=== PATIENT | male | born 1985 | race American Indian/Alaskan Native ===

== ENCOUNTER 2019-11-22 08:42 | Observation (INO) | payer OTHER ==
--- NOTE | 2019-11-22 09:36 | Emergency Department Report ---
ED General Adult HPI - General Chief complaint: High BP Stated complaint: HBP/BODY PAIN/BLOOD IN URINE Time Seen by Provider: 11/22/19 09:16 Source: patient Mode of arrival: Ambulatory Limitations: No Limitations - History of Present Illness Initial comments: Pt is a 34 yo AA male who comes to the ER today with a 2 week history of blood in his urine. No discharge. No back pain. No abd pain. No n/v. No fever or chills. He also reports that he has htn but has been off his meds for a couple months due to a move from [place] and loss of insurance. He reports he now has insurance and wants his meds and pcp. He denies cp, sob or swelling/edema of legs. He does endorse intermittent occipital headaches. No n/v/d/photophobia/trauma. He is hypertensive on admit; neuro intact. Pt does have a significant PMH- HTN, HPLD, CKD; he has been off meds for "a co uple months." 04/28 VQ scan intermediate for PE 04/28 ARF- US without hydro. 06/28 nuclear lung scan normal 06/28 echo EF 10-15 08/01 nuclear stress test no ischemia with EF 50; dilated LV Pt denies drug use. Occ etoh. denes cig smoking. pos fam hx of htn. -: month(s) Associated Symptoms: denies other symptoms Treatments Prior to Arrival: none - Related Data Allergies Allergy/AdvReac Type Severity Reaction Status Date / Time dog dander Allergy Unknown Verified 05/08/16 13:08 ED Review of Systems ROS: Stated complaint: HBP/BODY PAIN/BLOOD IN URINE Other details as noted in HPI Comment: All other systems reviewed and negative ED Past Medical Hx - Past Medical History Hx Hypertension: Yes Hx CVA: No Hx Congestive Heart Failure: Yes (nicmo) Hx Diabetes: No Hx Deep Vein Thrombosis: No Hx Pulmonary Embolism: Yes Hx GERD: No Hx Liver Disease: No Hx Renal Disease: Yes Hx of Cancer: No Hx Sickle Cell Disease: No Hx Arthritis: No Hx Headaches / Migraines: No Hx Seizures: No Hx Kidney Stones: No Hx Psychiatric Treatment: No Hx Asthma: Yes Hx COPD: No Hx Tuberculosis: No Hx Dementia: No Hx HIV: No Additional medical history: pneumonia and PE in 04/2016 - Surgical History Past Surgical History?: No - Family History Family history: other (mom and dad a/w htn) - Social History Smoking Status: Never Smoker Substance Use Type: Alcohol, Marijuana (in past) ED Physical Exam - General Limitations: No Limitations General appearance: alert, in no apparent distress - Head Head exam: Present: atraumatic, normocephalic - Eye Eye exam: Present: normal appearance - ENT ENT exam: Present: mucous membranes moist - Neck Neck exam: Present: normal inspection - Respiratory Respiratory exam: Present: normal lung sounds bilaterally. Absent: respiratory distress - Cardiovascular Cardiovascular Exam: Present: regular rate, normal rhythm. Absent: systolic murmur, diastolic murmur, rubs, gallop - GI/Abdominal GI/Abdominal exam: Present: soft, normal bowel sounds - Rectal Rectal exam: Present: deferred - Extremities Exam Extremities exam: Present: normal inspection - Back Exam Back exam: Present: normal inspection - Neurological Exam Neurological exam: Present: alert, oriented X3 - Psychiatric Psychiatric exam: Present: normal affect, normal mood - Skin Skin exam: Present: warm, dry, intact, normal color. Absent: rash ED Course Vital Signs 11/22/19 11/22/19 11/22/19 08:57 10:14 10:56 Temperature 98.3 F Pulse Rate 99 H 98 H Respiratory 18 16 Rate Blood Pressure 262/168 237/173 Blood Pressure 168/114 [Left] O2 Sat by Pulse 99 Oximetry 11/22/19 11/22/19 11/22/19 12:02 13:59 14:21 Temperature Pulse Rate 85 94 H 80 Respiratory 16 16 16 Rate Blood Pressure Blood Pressure 174/125 246/192 222/162 [Left] O2 Sat by Pulse 97 96 96 Oximetry 11/22/19 14:44 Temperature Pulse Rate 116 H Respiratory 16 Rate Blood Pressure Blood Pressure 174/120 [Left] O2 Sat by Pulse 100 Oximetry - Reevaluation(s) Reevaluation #1: 11/22/19 10:31 reexam bp p hydral 20 mg IV has inc discussed with Dr Petty-will place on cardene drip will need admit for a/c KD/HTN emergency Reevaluation #2: 11/22/19 11:00 RN called me to room. Pt had delayed response to hydral- bp trending down Will hold off on cardene at this time Reevaluation #3: 11/22/19 14:03 BP HAS AGAIN INC. CARDENE DRIP ON WILL ADMIT HTN EMERGENCY 2ND TROP AND EKG P Reevaluation #4: 11/22/19 14:43 2nd troponin has been noted elevated pt denies chest pain or sob 12lead with no acute change Chuck- Taina Wagner consulted and will see pt pt and family updated on plan of care ED Medical Decision Making - Lab Data Result diagrams: 11/22/19 09:21 11/22/19 09:21 - EKG Data -: EKG Interpreted by Nd EKG shows normal: sinus rhythm - EKG Data Interpretation: no acute changes - Radiology Data Radiology results: report reviewed, image reviewed - Medical Decision Making Labs 11/22/19 11/22/19 11/22/19 09:21 09:21 09:21 WBC 5.2 RBC 5.95 H Hgb 16.8 H Hct 48.2 H MCV 81 L MCH 28 MCHC 35 H RDW 13.1 L Plt Count 174 Lymph % (Auto) 25.9 [place] % (Auto) 7.5 H Eos % (Auto) 2.7 Baso % (Auto) 1.1 Lymph # 1.3 [place] # 0.4 Eos # 0.1 Baso # 0.1 Seg Neutrophils % 62.8 Seg Neutrophils # 3.3 D-Dimer Sodium 141 Potassium 3.3 L Chloride 100.1 Carbon Dioxide 25 Anion Gap 19 BUN 22 H Creatinine 2.3 H Estimated GFR 40 BUN/Creatinine Ratio 10 Glucose 110 H Calcium 9.0 Total Bilirubin 1.50 H AST 29 ALT 30 Alkaline Phosphatase 71 Troponin T NT-Pro-B Natriuret Pep 1636 H Total Protein 7.3 Albumin 4.0 Albumin/Globulin Ratio 1.2 Urine Color Urine Turbidity Urine pH Ur Specific [place] Urine Protein Urine Glucose (UA) Urine Ketones Urine Blood Urine Nitrite Urine Bilirubin Urine Urobilinogen Ur Leukocyte Esterase Urine WBC (Auto) Urine RBC (Auto) U Epithel Cells (Auto) Urine Bacteria (Auto) Hyaline Casts Urine Mucus 11/22/19 11/22/19 11/22/19 09:39 11:13 Unknown WBC RBC Hgb Hct MCV MCH MCHC RDW Plt Count Lymph % (Auto) [place] % (Auto) Eos % (Auto) Baso % (Auto) Lymph # [place] # Eos # Baso # Seg Neutrophils % Seg Neutrophils # D-Dimer 287.38 H Sodium Potassium Chloride Carbon Dioxide Anion Gap BUN Creatinine Estimated GFR BUN/Creatinine Ratio Glucose Calcium Total Bilirubin AST ALT Alkaline Phosphatase Troponin T < 0.010 NT-Pro-B Natriuret Pep Total Protein Albumin Albumin/Globulin Ratio Urine Color Yellow Urine Turbidity Clear Urine pH 5.0 Ur Specific [place] 1.013 Urine Protein >500 Urine Glucose (UA) Neg Urine Ketones Neg Urine Blood Sm Urine Nitrite Neg Urine Bilirubin Neg Urine Urobilinogen < 2.0 Ur Leukocyte Esterase Neg Urine WBC (Auto) 2.0 Urine RBC (Auto) 1.0 U Epithel Cells (Auto) < 1.0 Urine Bacteria (Auto) 1+ Hyaline Casts 4 Urine Mucus Few Vital Signs 11/22/19 11/22/19 11/22/19 08:57 10:14 10:56 Temperature 98.3 F Pulse Rate 99 H 98 H Respiratory 18 16 Rate Blood Pressure 262/168 237/173 Blood Pressure 168/114 [Left] O2 Sat by Pulse 99 Oximetry 11/22/19 12:02 Temperature Pulse Rate 85 Respiratory 16 Rate Blood Pressure Blood Pressure 174/125 [Left] O2 Sat by Pulse 97 Oximetry labs noted Cr- a/c 12 lead noted EKg noted- no change from prior in 2016 xray noted index of suspicion for pe low- no tachycardia, hypotension, RV strain, hypoxia repeat troponin noted inc Cards consulted- Dr Goldstein consulted for admit pt on cardene drip at present and pt updated on plan of care 1445 pt having no cp or sob Admit for further evaluation - - Differential Diagnosis HTN URGENCY/HTN EMERGENCY/CHF/ACS Critical care attestation.: If time is entered above; I have spent that time in minutes in the direct care of this critically ill patient, excluding procedure time. ED Disposition Clinical Impression: Hypertensive emergency, Acute on chronic renal insufficiency, Elevated troponin Disposition: OP ADMIT IP TO THIS HOSP Is pt being admited?: Yes Does the pt Need Aspirin: No Condition: Stable Instructions: Hypertension (ED) Referrals: PRIMARY CAREMD [Primary Care Provider] - 3-5 Days Time of Disposition: 14:04
[2019-11-22 09:38] LABS: Basophils # (Auto) 0.1 K/mm3 (0.0-0.1); Basophils % (Auto) 1.1 % (0.0-1.8); Eosinophils # (Auto) 0.1 K/mm3 (0.0-0.4); Eosinophils % (Auto) 2.7 % (0.0-4.3); Hematocrit 48.2 % (35.5-45.6); Hemoglobin 16.8 gm/dl (11.8-15.2); Lymphocytes # (Auto) 1.3 K/mm3 (1.2-5.4); Lymphocytes % (Auto) 25.9 % (13.4-35.0); Mean Corpuscular HGB Conc 35 % (32-34); Mean Corpuscular Volume 81 fl (84-94); Monocytes # (Auto) 0.4 K/mm3 (0.0-0.8); Monocytes % (Auto) 7.5 % (0.0-7.3); Platelet Count 174 K/mm3 (140-440); Red Blood Count 5.95 M/mm3 (3.65-5.03); Red Cell Distribution Width 13.1 % (13.2-15.2)
[2019-11-22] MEDS ORDERED: hydrALAZINE 20 MG/1 ML INJ IV ONE (09:42)
--- NOTE | 2019-11-22 10:19 | XRay Report ---
CHEST 1 VIEW INDICATION: htn. COMPARISON: None FINDINGS: Support devices: None. Heart: Within normal limits. Lungs/Pleura: No acute air space or interstitial disease. Additional findings: None. IMPRESSION: No acute findings. Signer Name: Trell De Jesus Jr, MD Signed: 11/22/2019 10:15 AM Workstation Name: [id number]
[2019-11-22] MEDS ORDERED: ONDANSETRON 4 MG/2 ML INJ ONE ×2 (10:46→17:54)
[2019-11-22] MEDS ORDERED: ONDANSETRON 4 MG/2 ML INJ IV ONE (10:51)
[2019-11-22] MEDS ORDERED: niCARdipine 50 MG in SODIUM CHLORIDE 0.9% 250ML 230 ML IV SCH ×2 (11:00→14:00)
[2019-11-22 12:25] LABS: Bacteria,Urine 1+ /HPF (Negative); Bilirubin,Urine NEG (Negative); Blood,Urine SM (Negative); Color,Urine Yellow (Yellow); Hyaline Casts,Urine 4 /LPF; Mucus,Urine FEW /HPF; Urobilinogen,Urine < 2.0 mg/dL (<2.0)
[2019-11-22 12:26] LABS: Protein,Urine >500 mg/dL (Negative)
[2019-11-22 14:50] LABS: Chol/HDL Ratio 5.12 %
--- NOTE | 2019-11-22 15:11 | Consultation ---
History of Present Illness Consult date: 11/22/19 Requesting physician: SO PERAZA Consult reason: elevated troponin History of present illness: The pt is a 34YO male with a past medical history of HFrEF, CMP, HTN, CKD. He has been seen by our practice on prior hospitalization. He has been noncompliant with OP follow up. He presented with c/o hematuria for the past 2 weeks history. He also reports that he has HTN but has been off his meds for a couple months due to a move from [place] and loss of insurance. He reports he now has insurance and wants his meds and pcp. He denies any occurrentce of chest pain, SOB, palpitations, n/v, diaphoresis, dizziness or syncope. He does endorse intermittent occipital headaches. BP on admission 262/168, pt initiated on cardene gtt. Cardene gtt has been weaned off on evaluation. Echo done 06/2016 showed EF 10-15%, LA mild to mod dilated, trace MR and TR, LV mildly dilated, restrictive diastolic filling, RV systolic function mod reduced. Lexiscan MPI stress test done 07/2016 was negative for ischemia or scar, EF 15%. Past History Past Medical History: heart failure, hypertension, other (ckd) Medications and Allergies Allergies Allergy/AdvReac Type Severity Reaction Status Date / Time dog dander Allergy Unknown Verified 05/08/16 13:08 Active Meds: Active Medications Nicardipine HCl 50 mg/ Sodium (Chloride) 250 mls @ 25 mls/hr IV TITR CARLOTA; Protocol Last Titration: 11/22/19 14:48 Dose: 5 mg/hr, 25 mls/hr Documented by: Review of Systems Constitutional: no weight loss, no weight gain, no fever, no chills, no sweats Ears, nose, mouth and throat: no ear pain, no nose pain, no sinus pressure, no sinus pain Cardiovascular: no chest pain, no orthopnea, no palpitations, no rapid/irregular heart beat, no edema, no syncope, no lightheadedness, no shortness of breath, no dyspnea on exertion Respiratory: no cough, no shortness of breath, no dyspnea on exertion, no co ngestion, no wheezing, no pain on inspiration Gastrointestinal: no abdominal pain, no nausea, no vomiting, no diarrhea, no constipation, no change in bowel habits Genitourinary Male: hematuria, no dysuria, no flank pain, no discharge, no urinary frequency, no urinary hesitancy Musculoskeletal: no neck stiffness, no neck pain, no shooting arm pain, no arm numbness/tingling, no low back pain, no shooting leg pain Integumentary: no rash, no pruritis, no redness, no sores, no wounds Neurological: no head injury, no paralysis, no weakness, no parathesias, no numbness, no tingling, no seizures, no syncope Psychiatric: no anxiety Endocrine: no cold intolerance, no heat intolerance Hematologic/Lymphatic: no easy bruising, no easy bleeding Allergic/Immunologic: no urticaria, no wheezing Physical Examination Vital Signs Temp Pulse Resp BP 98.3 F 99 H 18 262/168 11/22/19 08:57 11/22/19 08:57 11/22/19 08:57 11/22/19 08:57 General appearance: no acute distress HEENT: Positive: PERRL Neck: Positive: neck supple, trachea midline Cardiac: Positive: Reg Rate and Rhythm, S1/S2 Lungs: Positive: Decreased Breath Sounds Neuro: Positive: Grossly Intact Abdomen: Negative: Tender Skin: Negative: Rash Musculoskeletal: No Pain Extremities: Absent: edema Results 11/22/19 09:21 11/22/19 09:21 Cardiac Enzymes 11/22/19 Range/Units 09:21 AST 29 (5-40) units/L Lipids 11/22/19 Range/Units 13:09 Triglycerides 199 H (2-149) mg/dL Cholesterol 241 H (50-199) mg/dL HDL Cholesterol 47 (40-59) mg/dL Cholesterol/HDL Ratio 5.12 % CBC 11/22/19 Range/Units 09:21 WBC 5.2 (4.5-11.0) K/mm3 RBC 5.95 H (3.65-5.03) M/mm3 Hgb 16.8 H (11.8-15.2) gm/dl Hct 48.2 H (35.5-45.6) % Plt Count 174 (140-440) K/mm3 Lymph # 1.3 (1.2-5.4) K/mm3 [place] # 0.4 (0.0-0.8) K/mm3 Eos # 0.1 (0.0-0.4) K/mm3 Baso # 0.1 (0.0-0.1) K/mm3 Comprehensive Metabolic Panel 11/22/19 Range/Units 09:21 Sodium 141 (137-145) mmol/L Potassium 3.3 L (3.6-5.0) mmol/L Chloride 100.1 (98-107) mmol/L Carbon Dioxide 25 (22-30) mmol/L BUN 22 H (9-20) mg/dL Creatinine 2.3 H (0.8-1.5) mg/dL Glucose 110 H (75-100) mg/dL Calcium 9.0 (8.4-10.2) mg/dL AST 29 (5-40) units/L ALT 30 (7-56) units/L Alkaline Phosphatase 71 (35-129) units/L Total Protein 7.3 (6.3-8.2) g/dL Albumin 4.0 (3.9-5) g/dL - Imaging and Cardiology Echo: report reviewed ( 06/2016 showed EF 10-15%, LA mild to mod dilated, trace MR and TR, LV mildly dilated, restrictive diastolic filling, RV systolic func tion mod reduced. ) EKG: report reviewed, image reviewed EKG interpretations - Telemetry EKG Rhythm: Sinus Rhythm - EKG Sinus rhythms and dysrhythmias: sinus rhythm Chamber hypertrophy or enlargement: left ventricular hypertro Repolarization changes or abnormalities: nonspecific abnormality, ST segment, and/or T wave Assessment and Plan DDimer elevated - recommend V/Q scan per primary. Minimally elevated trop x 1 set appears nonspecific at this time in setting of hypertensive emergency and renal insufficiency. ECG unchanged from prior. Cont to trend and f/u ECG in AM. Obtain echo. Optimize anti-hypertensive regimen. Further recs to follow per hospital course. The patient has been seen in conjunction with Dr. Lange who agrees with the assessment and plan of care. - Patient Problems (1) Hypertensive emergency Current Visit: Yes Status: Acute (2) Acute on chronic renal insufficiency Current Visit: Yes Status: Acute (3) Hematuria Current Visit: Yes Status: Acute (4) Elevated troponin Current Visit: Yes Status: Acute (5) Cardiomyopathy Current Visit: Yes Status: Chronic (6) Hyperlipidemia Current Visit: Yes Status: Chronic (7) Noncompliance Current Visit: Yes Status: Chronic
[2019-11-22] MEDS ORDERED: hydrALAZINE 25 MG TAB PO SCH ×2 (15:18→15:19)
[2019-11-22] MEDS ORDERED: ZOLPIDEM 5 MG TAB PO PRN (16:05)
[2019-11-22] MEDS ORDERED: ALPRAZolam 0.25 MG TAB PO PRN (16:05)
[2019-11-22] MEDS ORDERED: ONDANSETRON 4 MG/2 ML INJ IV PRN (16:05)
--- NOTE | 2019-11-22 16:14 | History and Physical Report ---
History of Present Illness Date of examination: 11/22/19 Date of admission: November 22, 2019 Chief complaint: Hematuria uncontrolled hypertension. History of present illness: Patient 34-year-old male with a history of hypertension, hyperlipidemia, chronic kidney disease presents with a chief complaint of hematuria x2 weeks. After gone in detail patient states that the majority of his symptoms was hematospermia and not so much hematuria. Patient also stated he has been noncompliant with his medications after losing insurance and moving back and forth to [facility]. Currently relates no other symptoms no headache no chest pain no shortness of breath no dyspnea on exertion no orthopnea no PND. Patient states he is in fairly good health except for his blood pressure. Patient states been out of meds greater than 5 weeks. Initial work-up negative. Patient initial blood pressure on admission was 262/168. Patient relates work- up in 2015 had a negative VQ scan. Stress test was negative. Echocardiogram at the time showed ejection fraction 10 to 15%. Patient currently be admitted for hypertensive emergency and hematuria and acute on chronic kidney disease. Past History Past Medical History: heart failure, hypertension, other (ckd). denies: acute MA, atrial fib, arrhythmia, anemia, arthritis, CAD, cancer, COPD, diabetes Past Surgical History: No surgical history Social history: no significant social history, , lives with family Family history: hypertension Medications and Allergies Allergies Allergy/AdvReac Type Severity Reaction Status Date / Time dog dander Allergy Unknown Verified 05/08/16 13:08 Active Meds: Active Medications Alprazolam (Xanax) 0.25 mg PO Q8H PRN PRN Reason: Anxiety Atorvastatin Calcium (Lipitor) 40 mg PO QHS [facility] Carvedilol (Coreg) 6.25 mg PO BID CARLOTA Enoxaparin Sodium (Enoxaparin) 40 mg SUB-Q QDAY CARLOTA Hydralazine HCl (Apresoline) 25 mg PO TID CARLOTA Hydralazine HCl (Apresoline) 10 mg IV Q4HR PRN PRN Reason: Hypertension Nicardipine HCl 50 mg/ Sodium (Chloride) 250 mls @ 25 mls/hr IV TITR CARLOTA; Protocol Last Titration: 11/22/19 14:48 Dose: 5 mg/hr, 25 mls/hr Documented by: Nifedipine (Procardia Xl) 60 mg PO ONCE ONE Stop: 11/22/19 16:09 Ondansetron HCl (Zofran) 4 mg IV Q8H PRN PRN Reason: Nausea And Vomiting Oxycodone/Acetaminophen (Percocet 5/325) 1 tab PO Q6H PRN PRN Reason: Pain, Moderate (4-6) Sodium Chloride (Sodium Chloride Flush Syringe 10 Ml) 10 ml IV BID CARLOTA Sodium Chloride (Sodium Chloride Flush Syringe 10 Ml) 10 ml IV PRN PRN PRN Reason: LINE FLUSH Zolpidem Tartrate (Ambien) 5 mg PO QHS PRN PRN Reason: Sleeplessness Review of Systems Constitutional: no weight loss, no fever, no fatigue, no malaise, no lethargy, no daytime sleepiness Ears, nose, mouth and throat: no swelling in throat, no odynophagia Cardiovascular: no chest pain, no palpitations, no edema, no shortness of breath, no paroxysmal nocturnal dyspnea, no leg edema, no other Respiratory: no excessive sputum, no hemoptysis, no wheezing, no pain, no pain on inspiration, no sleep apnea, no respiratory infections Gastrointestinal: no diarrhea, no change in bowel habits, no coffee ground emesis, no melena, no early satiety, no indigestion Genitourinary Male: no dysuria, no genital pain, no genital sores Rectal: no pain, no discharge Musculoskeletal: no neck pain, no arm numbness/tingling, no muscle weakness, no loss of height Integumentary: no redness, no blisters Neurological: no weakness, no seizures, no syncope, no convulsions, no change in mentation, no changes in smell/taste, no balance difficulties, no motor disturbance, no loss of vision, no burning pain, no paralysis Psychiatric: no sleep disturbances, no change in libido, no suicidal ideation, no hallucinations, no depression, no hopelessness, no anxiety attacks, no sadness/tearfullness, no mood swings, no other Endocrine: no polyphagia, no polydipsia, no increase in ring/shoe/hat size, no deepening of the voice, no high blood sugars, no recent glucocorticoid use Hematologic/Lymphatic: no other Exam - Constitutional Vitals: Temp Pulse Resp BP Pulse Ox 98.3 F 77 16 159/99 97 11/22/19 08:57 11/22/19 15:26 11/22/19 15:26 11/22/19 15:26 11/22/19 15:26 General appearance: Present: no acute distress, well-nourished - EENT Eyes: Present: PERRL ENT: hearing intact, clear oral mucosa - Neck Neck: Present: supple, normal ROM - Respiratory Respiratory effort: normal Respiratory: bilateral: CTA - Cardiovascular Heart Sounds: Present: S1 & S2. Absent: rub, click - Extremities Extremities: pulses symmetrical, No edema Peripheral Pulses: within normal limits - Abdominal General gastrointestinal: Present: soft, non-tender, non-distended, normal bowel sounds Male genitourinary: Present: normal - Integumentary Integumentary: Present: clear, warm, dry - Musculoskeletal Musculoskeletal: gait normal, strength equal bilaterally - Psychiatric Psychiatric: appropriate mood/affect, intact judgment & insight - Neurologic Neurologic: CNII-XII intact, moves all extremities Results - Labs CBC & Chem 7: 11/22/19 09:21 11/22/19 09:21 Labs: Laboratory Last Values WBC 5.2 K/mm3 (4.5-11.0) 11/22/19 09:21 RBC 5.95 M/mm3 (3.65-5.03) H 11/22/19 09:21 Hgb 16.8 gm/dl (11.8-15.2) H 11/22/19 09:21 Hct 48.2 % (35.5-45.6) H 11/22/19 09:21 MCV 81 fl (84-94) L 11/22/19 09:21 MCH 28 pg (28-32) 11/22/19 09:21 MCHC 35 % (32-34) H 11/22/19 09:21 RDW 13.1 % (13.2-15.2) L 11/22/19 09:21 Plt Count 174 K/mm3 (140-440) 11/22/19 09:21 Lymph % (Auto) 25.9 % (13.4-35.0) 11/22/19 09:21 [place] % (Auto) 7.5 % (0.0-7.3) H 11/22/19 09:21 Eos % (Auto) 2.7 % (0.0-4.3) 11/22/19 09:21 Baso % (Auto) 1.1 % (0.0-1.8) 11/22/19 09:21 Lymph # 1.3 K/mm3 (1.2-5.4) 11/22/19 09:21 [place] # 0.4 K/mm3 (0.0-0.8) 11/22/19 09:21 Eos # 0.1 K/mm3 (0.0-0.4) 11/22/19 09:21 Baso # 0.1 K/mm3 (0.0-0.1) 11/22/19 09:21 Seg Neutrophils % 62.8 % (40.0-70.0) 11/22/19 09:21 Seg Neutrophils # 3.3 K/mm3 (1.8-7.7) 11/22/19 09:21 D-Dimer 287.38 ng/mlDDU (0-234) H 11/22/19 11:13 Sodium 141 mmol/L (137-145) 11/22/19 09:21 Potassium 3.3 mmol/L (3.6-5.0) L 11/22/19 09:21 Chloride 100.1 mmol/L (98-107) 11/22/19 09:21 Carbon Dioxide 25 mmol/L (22-30) 11/22/19 09:21 Anion Gap 19 mmol/L 11/22/19 09:21 BUN 22 mg/dL (9-20) H 11/22/19 09:21 Creatinine 2.3 mg/dL (0.8-1.5) H 11/22/19 09:21 Estimated GFR 40 ml/min 11/22/19 09:21 BUN/Creatinine Ratio 10 % 11/22/19 09:21 Glucose 110 mg/dL (75-100) H 11/22/19 09:21 POC Glucose 76 (70-105) 11/22/19 14:06 Calcium 9.0 mg/dL (8.4-10.2) 11/22/19 09:21 Total Bilirubin 1.50 mg/dL (0.1-1.2) H 11/22/19 09:21 AST 29 units/L (5-40) 11/22/19 09:21 ALT 30 units/L (7-56) 11/22/19 09:21 Alkaline Phosphatase 71 units/L (35-129) 11/22/19 09:21 Troponin T 0.036 ng/mL (0.00-0.029) H D 11/22/19 13:09 NT-Pro-B Natriuret Pep 1636 pg/mL (0-450) H 11/22/19 09:21 Total Protein 7.3 g/dL (6.3-8.2) 11/22/19 09:21 Albumin 4.0 g/dL (3.9-5) 11/22/19 09:21 Albumin/Globulin Ratio 1.2 % 11/22/19 09:21 Triglycerides 199 mg/dL (2-149) H 11/22/19 13:09 Cholesterol 241 mg/dL (50-199) H 11/22/19 13:09 LDL Cholesterol Direct 173 mg/dL (50-130) H 11/22/19 13:09 HDL Cholesterol 47 mg/dL (40-59) 11/22/19 13:09 Cholesterol/HDL Ratio 5.12 % 11/22/19 13:09 Urine Color Yellow (Yellow) 11/22/19 Unknown Urine Turbidity Clear (Clear) 11/22/19 Unknown Urine pH 5.0 (5.0-7.0) 11/22/19 Unknown Ur Specific [place] 1.013 (1.003-1.030) 11/22/19 Unknown Urine Protein >500 mg/dL (Negative) 11/22/19 Unknown Urine Glucose (UA) Neg mg/dL (Negative) 11/22/19 Unknown Urine Ketones Neg mg/dL (Negative) 11/22/19 Unknown Urine Blood Sm (Negative) 11/22/19 Unknown Urine Nitrite Neg (Negative) 11/22/19 Unknown Urine Bilirubin Neg (Negative) 11/22/19 Unknown Urine Urobilinogen < 2.0 mg/dL (<2.0) 11/22/19 Unknown Ur Leukocyte Esterase Neg (Negative) 11/22/19 Unknown Urine WBC (Auto) 2.0 /HPF (0.0-6.0) 11/22/19 Unknown Urine RBC (Auto) 1.0 /HPF (0.0-6.0) 11/22/19 Unknown U Epithel Cells (Auto) < 1.0 /HPF (0-13.0) 11/22/19 Unknown Urine Bacteria (Auto) 1+ /HPF (Negative) 11/22/19 Unknown Hyaline Casts 4 /LPF 11/22/19 Unknown Urine Mucus Few /HPF 11/22/19 Unknown - Imaging and Cardiology EKG: image reviewed Chest x-ray: image reviewed Assessment and Plan Advance Directives: Yes Plan of care discussed with patient/family: Yes - Patient Problems (1) Acute on chronic renal insufficiency Current Visit: Yes Status: Acute Plan to address problem: Patient with acute on chronic renal sufficiency secondary to uncontrolled hypertension. Will avoid nephrotoxic agents. Will be more aggressive with blood pressure control. Need to improve on compliance. We will follow-up renal function in a.m. After better blood pressure control. (2) Elevated troponin Current Visit: Yes Status: Acute Plan to address problem: Patient elevated troponin in the face of renal insufficiency and hypertensive emergency. Most clear etiology. Cardiology consult in place patient with stress test echocardiogram scheduled. (3) Hematuria Current Visit: Yes Status: Acute Plan to address problem: At this point unclear whether secondary to end-stage organ failure with hematuria and hypertensive emergency. No pneumaturia at present. (4) Hypertensive emergency Current Visit: Yes Status: Acute Plan to address problem: At present we will attempt to wean off Cardizem drip. Will start long-acting Procardia treat with as needed hydralazine and add losartan 50 mg daily. An attempt to wean. (5) Hyperlipidemia Current Visit: Yes Status: Chronic Plan to address problem: We will reintroduce statin. Obtain LDL and if meets criteria will begin statin with a goal of LDL less than 100. (6) Noncompliance Current Visit: Yes Status: Chronic Plan to address problem: Distal noncompliance explained the risk of patient developing chronic kidney disease resulting in transfusion versus heart disease. (7) Congestive heart failure Current Visit: Yes Status: Acute Plan to address problem: Patient started on Procardia. And attempts to treat his hypertensive emergency. We will also introduce beta-malik. We will not use NINA inhibitor at this time secondary to renal failure. We will also obtain echocardiogram. At that time that we can establish systolic dysfunction may titrate medicines accordingly.
[2019-11-22] MEDS ORDERED: NIFEdipine XL 60 MG TAB PO ONE (17:08)
[2019-11-22] MEDS ORDERED: ACETAMINOPHEN 500 MG TAB PO ONE (17:17)
[2019-11-22] MEDS ORDERED: ACETAMINOPHEN 500 MG TAB ONE (17:21)
[2019-11-22] MEDS: hydrALAZINE 20 MG/1 ML INJ IV PRN ×2 (17:28→21:56)
[2019-11-22] MEDS ORDERED: hydrALAZINE 20 MG/1 ML INJ ONE ×2 (17:28→21:38)
[2019-11-22] MEDS ORDERED: hydrALAZINE 25 MG TAB ONE (20:34)
[2019-11-22] MEDS: hydrALAZINE 25 MG TAB PO SCH (20:37)
[2019-11-22] MEDS ORDERED: oxyCODONE /ACETAMINOPHEN 5-325MG TAB ONE (21:56)
[2019-11-22] MEDS ORDERED: carvediloL 6.25 MG TAB PO SCH (22:00)
[2019-11-22] MEDS: oxyCODONE /ACETAMINOPHEN 5-325MG TAB PO PRN (22:05)
[2019-11-23] MEDS: carvediloL 6.25 MG TAB PO SCH ×3 (00:24→09:32)
[2019-11-23] MEDS: hydrALAZINE 20 MG/1 ML INJ IV PRN ×3 (04:40→09:32)
[2019-11-23 06:18] LABS: Calcium 8.7 mg/dL (8.4-10.2)
[2019-11-23 08:23] LABS: Calcium 8.6 mg/dL (8.4-10.2)
[2019-11-23] MEDS: hydrALAZINE 25 MG TAB PO SCH ×3 (08:31→21:06)
[2019-11-23] MEDS ORDERED: REGADENOSON 0.4 MG/5 ML INJ IV ONE (10:16)
[2019-11-23] MEDS: oxyCODONE /ACETAMINOPHEN 5-325MG TAB PO PRN ×2 (10:52→21:07)
[2019-11-23] MEDS: ENOXAPARIN 30 MG/0.3 ML INJ SUB-Q SCH (10:53)
--- NOTE | 2019-11-23 12:49 | Progress Note ---
Assessment and Plan Assessment and plan: Accelerated hypertension. Patient's blood pressure remains uncontrolled. Increase Procardia and hydralazine. Chronic kidney disease. Patient appears to be at his baseline creatinine of 2.4. Creatinine was 2.1 2015. Cardiomyopathy. Echocardiogram June 2016 revealed EF 10-15%, restrictive filling, LA mild-moderately dilated, LV mildly dilated, normal RV size but RV function moderately reduced. Repeat echocardiogram pending. Elevated troponin. Stress test scheduled for Monday. History Interval history: No new issues overnight. Hospitalist Physical - Constitutional Vitals: Temp Pulse Resp BP Pulse Ox 99.7 F H 111 H 18 171/112 93 11/23/19 08:42 11/23/19 09:32 11/23/19 08:42 11/23/19 09:32 11/23/19 08:42 General appearance: Present: no acute distress, well-nourished - EENT Eyes: Present: PERRL, EOM intact ENT: hearing intact, clear oral mucosa, dentition normal - Neck Neck: Present: supple, normal ROM - Respiratory Respiratory effort: normal Respiratory: bilateral: CTA - Cardiovascular Rhythm: regular Heart Sounds: Present: S1 & S2. Absent: gallop, rub - Extremities Extremities: no ischemia, No edema, Full ROM - Abdominal General gastrointestinal: soft, non-tender, non-distended, normal bowel sounds - Integumentary Integumentary: Present: clear, warm, dry - Neurologic Neurologic: CNII-XII intact, moves all extremities Results - Labs CBC & Chem 7: 11/22/19 09:21 11/23/19 06:54 Labs: Laboratory Last Values WBC 5.2 K/mm3 (4.5-11.0) 11/22/19 09:21 RBC 5.95 M/mm3 (3.65-5.03) H 11/22/19 09:21 Hgb 16.8 gm/dl (11.8-15.2) H 11/22/19 09:21 Hct 48.2 % (35.5-45.6) H 11/22/19 09:21 MCV 81 fl (84-94) L 11/22/19 09:21 MCH 28 pg (28-32) 11/22/19 09:21 MCHC 35 % (32-34) H 11/22/19 09:21 RDW 13.1 % (13.2-15.2) L 11/22/19 09:21 Plt Count 174 K/mm3 (140-440) 11/22/19 09:21 Lymph % (Auto) 25.9 % (13.4-35.0) 11/22/19 09:21 [place] % (Auto) 7.5 % (0.0-7.3) H 11/22/19 09:21 Eos % (Auto) 2.7 % (0.0-4.3) 11/22/19 09:21 Baso % (Auto) 1.1 % (0.0-1.8) 11/22/19 09:21 Lymph # 1.3 K/mm3 (1.2-5.4) 11/22/19 09:21 [place] # 0.4 K/mm3 (0.0-0.8) 11/22/19 09:21 Eos # 0.1 K/mm3 (0.0-0.4) 11/22/19 09:21 Baso # 0.1 K/mm3 (0.0-0.1) 11/22/19 09:21 Seg Neutrophils % 62.8 % (40.0-70.0) 11/22/19 09:21 Seg Neutrophils # 3.3 K/mm3 (1.8-7.7) 11/22/19 09:21 D-Dimer 287.38 ng/mlDDU (0-234) H 11/22/19 11:13 Sodium 139 mmol/L (137-145) 11/23/19 06:54 Potassium 3.2 mmol/L (3.6-5.0) L 11/23/19 06:54 Chloride 101.5 mmol/L (98-107) 11/23/19 06:54 Carbon Dioxide 21 mmol/L (22-30) L 11/23/19 06:54 Anion Gap 20 mmol/L 11/23/19 06:54 BUN 22 mg/dL (9-20) H 11/23/19 06:54 Creatinine 2.4 mg/dL (0.8-1.5) H 11/23/19 06:54 Estimated GFR 38 ml/min 11/23/19 06:54 BUN/Creatinine Ratio 9 % 11/23/19 06:54 Glucose 107 mg/dL (75-100) H 11/23/19 06:54 POC Glucose 76 (70-105) 11/22/19 14:06 Calcium 8.6 mg/dL (8.4-10.2) 11/23/19 06:54 Total Bilirubin 1.50 mg/dL (0.1-1.2) H 11/22/19 09:21 AST 29 units/L (5-40) 11/22/19 09:21 ALT 30 units/L (7-56) 11/22/19 09:21 Alkaline Phosphatase 71 units/L (35-129) 11/22/19 09:21 Troponin T 0.031 ng/mL (0.00-0.029) H 11/23/19 05:09 NT-Pro-B Natriuret Pep 1636 pg/mL (0-450) H 11/22/19 09:21 Total Protein 7.3 g/dL (6.3-8.2) 11/22/19 09:21 Albumin 4.0 g/dL (3.9-5) 11/22/19 09:21 Albumin/Globulin Ratio 1.2 % 11/22/19 09:21 Triglycerides 199 mg/dL (2-149) H 11/22/19 13:09 Cholesterol 241 mg/dL (50-199) H 11/22/19 13:09 LDL Cholesterol Direct 173 mg/dL (50-130) H 11/22/19 13:09 HDL Cholesterol 47 mg/dL (40-59) 11/22/19 13:09 Cholesterol/HDL Ratio 5.12 % 11/22/19 13:09 Urine Color Yellow (Yellow) 11/22/19 Unknown Urine Turbidity Clear (Clear) 11/22/19 Unknown Urine pH 5.0 (5.0-7.0) 11/22/19 Unknown Ur Specific [place] 1.013 (1.003-1.030) 11/22/19 Unknown Urine Protein >500 mg/dL (Negative) 11/22/19 Unknown Urine Glucose (UA) Neg mg/dL (Negative) 11/22/19 Unknown Urine Ketones Neg mg/dL (Negative) 11/22/19 Unknown Urine Blood Sm (Negative) 11/22/19 Unknown Urine Nitrite Neg (Negative) 11/22/19 Unknown Urine Bilirubin Neg (Negative) 11/22/19 Unknown Urine Urobilinogen < 2.0 mg/dL (<2.0) 11/22/19 Unknown Ur Leukocyte Esterase Neg (Negative) 11/22/19 Unknown Urine WBC (Auto) 2.0 /HPF (0.0-6.0) 11/22/19 Unknown Urine RBC (Auto) 1.0 /HPF (0.0-6.0) 11/22/19 Unknown U Epithel Cells (Auto) < 1.0 /HPF (0-13.0) 11/22/19 Unknown Urine Bacteria (Auto) 1+ /HPF (Negative) 11/22/19 Unknown Hyaline Casts 4 /LPF 11/22/19 Unknown Urine Mucus Few /HPF 11/22/19 Unknown Active Medications - Current Medications Current Medications: Generic Name Dose Route Start Last Admin Trade Name Freq PRN Reason Stop Dose Admin Alprazolam 0.25 mg 11/22/19 16:05 11/23/19 00:25 Xanax PO 0.25 mg Q8H PRN Administration Anxiety Atorvastatin Calcium 40 mg 11/22/19 22:00 11/23/19 00:24 Lipitor PO 40 mg QHS CARLOTA Administration Carvedilol 6.25 mg 11/22/19 22:00 11/23/19 09:32 Coreg PO 6.25 mg BID CARLOTA Administration Enoxaparin Sodium 30 mg 11/23/19 10:00 11/23/19 10:53 Enoxaparin SUB-Q 30 mg QDAY CARLOTA Administration Hydralazine HCl 10 mg 11/22/19 16:09 11/23/19 09:32 Apresoline IV 10 mg Q4HR PRN Administration Hypertension Hydralazine HCl 50 mg 11/23/19 10:10 Apresoline PO TID CARLOTA Nifedipine 60 mg 11/23/19 22:00 Procardia Xl PO Q12HR CARLOTA Ondansetron HCl 4 mg 11/22/19 16:05 11/22/19 18:14 Zofran IV 4 mg Q8H PRN Administration Nausea And Vomiting Oxycodone/Acetaminophen 1 tab 11/22/19 16:05 11/23/19 10:52 Percocet 5/325 PO 1 tab Q6H PRN Administration Pain, Moderate (4-6) Sodium Chloride 10 ml 11/22/19 22:00 11/23/19 10:53 Sodium Chloride Flush Syringe 10 Ml IV 10 ml BID CARLOTA Administration Sodium Chloride 10 ml 11/22/19 16:05 Sodium Chloride Flush Syringe 10 Ml IV PRN PRN LINE FLUSH Zolpidem Tartrate 5 mg 11/22/19 16:05 Ambien PO QHS PRN Sleeplessness
[2019-11-23] MEDS ORDERED: carvediloL 6.25 MG TAB PO SCH (12:51)
--- NOTE | 2019-11-23 12:53 | Progress Note ---
Assessment and Plan Hypertensive urgency Non-ST elevation NM type II Acute on chronic renal insufficiency History of cardiomyopathy Hypertension Hematuria Recommend from cardiovascular point of view blood pressure management do a Lexiscan nuclear stress test Monday for abnormal troponin Subjective Date of service: 11/23/19 Principal diagnosis: abnormal troponin Interval history: Denies any chest pain or shortness of breath Objective Vital Signs Temp Pulse Resp BP BP Pulse Ox 11/23/19 09:32 111 H 171/112 11/23/19 08:42 99.7 F H 111 H 18 171/112 93 11/23/19 08:31 111 H 158/91 11/23/19 06:56 111 H 20 158/91 92 11/23/19 06:51 111 H 20 158/91 95 11/23/19 04:33 98.7 F 102 H 20 166/114 96 11/23/19 01:41 62 10 L 133/79 100 11/23/19 01:31 65 14 133/79 99 11/23/19 01:21 72 10 L 133/79 100 11/23/19 01:19 80 17 133/79 96 11/23/19 01:00 63 14 133/79 100 11/23/19 00:51 68 12 141/73 97 11/23/19 00:41 60 10 L 141/73 100 11/23/19 00:31 64 13 141/73 99 11/23/19 00:21 76 12 141/73 100 11/23/19 00:11 67 12 141/73 98 11/23/19 00:02 81 21 166/109 11/22/19 23:50 166/109 83 L 11/22/19 23:49 120 H 11/22/19 23:48 166/109 85 11/22/19 22:30 145/82 11/22/19 22:15 169/114 95 11/22/19 22:00 120 H 21 169/114 87 11/22/19 21:56 111 H 163/111 11/22/19 21:45 111 H 21 163/106 86 11/22/19 21:30 111 H 22 165/108 96 11/22/19 21:15 113 H 23 163/111 96 11/22/19 21:00 109 H 21 166/120 11/22/19 20:45 105 H 21 170/120 92 11/22/19 20:37 105 H 168/114 11/22/19 20:30 107 H 22 168/114 94 11/22/19 20:15 103 H 21 169/114 11/22/19 20:00 104 H 19 165/111 11/22/19 19:45 156/105 93 11/22/19 19:30 175/127 96 11/22/19 19:15 177/126 98 11/22/19 19:00 166/118 96 11/22/19 18:55 84 16 154/101 96 11/22/19 18:45 154/101 98 11/22/19 18:39 94 H 16 143/93 97 11/22/19 18:30 143/93 96 11/22/19 18:27 94 H 16 132/85 97 11/22/19 18:17 84 16 124/77 96 11/22/19 18:15 124/77 94 11/22/19 18:00 209/113 93 11/22/19 17:46 201/134 97 11/22/19 17:39 94 H 16 201/134 96 11/22/19 17:30 219/129 97 11/22/19 17:28 221/119 11/22/19 17:18 94 H 16 219/129 100 11/22/19 17:16 219/129 96 11/22/19 17:00 198/135 96 11/22/19 16:45 198/135 96 11/22/19 16:30 188/140 94 11/22/19 16:15 188/140 96 11/22/19 16:00 176/118 99 11/22/19 15:45 176/118 98 11/22/19 15:30 155/99 94 11/22/19 15:26 77 16 159/99 97 11/22/19 15:15 155/99 96 11/22/19 15:06 158/88 96 11/22/19 14:45 158/88 95 11/22/19 14:44 116 H 16 174/120 100 11/22/19 14:30 222/162 98 11/22/19 14:21 80 16 222/162 96 11/22/19 14:15 222/162 98 11/22/19 14:11 227/154 99 11/22/19 13:59 94 H 16 246/192 96 - Physical Examination General: Appears Well HEENT: Positive: PERRL Neck: Positive: neck supple, trachea midline Cardiac: Positive: Reg Rate and Rhythm Lungs: Positive: clear to auscultation Neuro: Positive: Grossly Intact Abdomen: Negative: Tender Skin: Negative: Rash Musculoskeletal: No Pain Extremities: Absent: edema - Labs and Meds Lipids 11/22/19 Range/Units 13:09 Triglycerides 199 H (2-149) mg/dL Cholesterol 241 H (50-199) mg/dL HDL Cholesterol 47 (40-59) mg/dL Cholesterol/HDL Ratio 5.12 % Comprehensive Metabolic Panel 11/23/19 11/23/19 Range/Units 05:09 06:54 Sodium 140 139 (137-145) mmol/L Potassium 3.3 L 3.2 L (3.6-5.0) mmol/L Chloride 102.6 101.5 (98-107) mmol/L Carbon Dioxide 20 L 21 L (22-30) mmol/L BUN 21 H 22 H (9-20) mg/dL Creatinine 2.4 H 2.4 H (0.8-1.5) mg/dL Glucose 123 H 107 H (75-100) mg/dL Calcium 8.7 8.6 (8.4-10.2) mg/dL - Imaging and Cardiology EKG: image reviewed Echo: report reviewed ( 06/2016 showed EF 10-15%, LA mild to mod dilated, trace MR and TR, LV mildly dilated, restrictive diastolic filling, RV systolic function mod reduced. ), other (11/22/2019 normal LV function moderate LVH EF 5560% no significant regurgitation) - Telemetry EKG Rhythm: Sinus Rhythm - EKG Sinus rhythms and dysrhythmias: sinus rhythm Chamber hypertrophy or enlargement: left ventricular hypertro Repolarization changes or abnormalities: nonspecific abnormality, ST segment, and/or T wave
[2019-11-23] MEDS: carvediloL 25 MG TAB PO SCH ×2 (13:53→21:07)
[2019-11-23] MEDS ORDERED: NIFEdipine XL 60 MG TAB PO SCH (22:00)
[2019-11-24] MEDS: oxyCODONE /ACETAMINOPHEN 5-325MG TAB PO PRN (07:56)
[2019-11-24] MEDS: hydrALAZINE 20 MG/1 ML INJ IV PRN ×2 (08:09→17:45)
[2019-11-24] MEDS: carvediloL 25 MG TAB PO SCH (09:33)
[2019-11-24] MEDS: ENOXAPARIN 30 MG/0.3 ML INJ SUB-Q SCH (09:33)
[2019-11-24] MEDS: hydrALAZINE 25 MG TAB PO SCH ×3 (09:33→21:33)
--- NOTE | 2019-11-24 10:20 | Progress Note ---
Assessment and Plan Hypertensive urgency Non-ST elevation CT type II Acute on chronic renal insufficiency History of cardiomyopathy Hypertension Hematuria Recommend from cardiovascular point of view blood pressure management do a nuclear stress test Monday for abnormal troponin, in view of elevated hr , change to lopressor 100mg bid, Subjective Date of service: 11/24/19 Principal diagnosis: abnormal troponin Interval history: sob is better Objective Vital Signs Temp Pulse Resp BP BP Pulse Ox 11/24/19 09:33 100 H 11/24/19 09:13 97.6 F 103 H 18 175/113 91 11/24/19 08:09 101 H 170/109 11/24/19 08:02 97.3 F L 101 H 170/109 11/24/19 04:29 98.5 F 84 16 164/108 94 11/23/19 23:20 98.7 F 95 H 20 159/102 91 11/23/19 22:00 96 H 11/23/19 21:07 155/104 11/23/19 21:06 155/104 11/23/19 19:38 99.6 F 97 H 16 155/104 94 11/23/19 17:36 98.3 F 101 H 18 159/104 93 11/23/19 13:53 111 H 171/112 11/23/19 13:35 101 H 183/121 95 - Physical Examination General: Appears Well HEENT: Positive: PERRL Neck: Positive: neck supple, trachea midline Cardiac: Positive: Reg Rate and Rhythm Lungs: Positive: clear to auscultation Neuro: Positive: Grossly Intact Abdomen: Negative: Tender Skin: Negative: Rash Musculoskeletal: No Pain Extremities: Absent: edema - Imaging and Cardiology EKG: image reviewed Echo: report reviewed ( 06/2016 showed EF 10-15%, LA mild to mod dilated, trace MR and TR, LV mildly dilated, restrictive diastolic filling, RV systolic function mod reduced. ), other (11/22/2019 normal LV function moderate LVH EF 5560% no significant regurgitation) - Telemetry EKG Rhythm: Sinus Tachycardia - EKG Sinus rhythms and dysrhythmias: sinus rhythm Chamber hypertrophy or enlargement: left ventricular hypertro Repolarization changes or abnormalities: nonspecific abnormality, ST segment, and/or T wave
--- NOTE | 2019-11-24 12:50 | Progress Note ---
Assessment and Plan Assessment and plan: Accelerated hypertension. Patient's blood pressure remains uncontrolled. Increased Procardia, clonidine, Lopressor and hydralazine. No ARB/NINA given renal insufficiency. Chronic kidney disease. Patient appears to be at his baseline creatinine of 2.4. Creatinine was 2.1 2015. Cardiomyopathy. Echocardiogram June 2016 revealed EF 10-15%, restrictive filling, LA mild-moderately dilated, LV mildly dilated, normal RV size but RV function moderately reduced. Repeat echocardiogram pending. Elevated troponin. Stress test scheduled for Monday. History Interval history: No new issues overnight. Hospitalist Physical - Constitutional Vitals: Temp Pulse Resp BP Pulse Ox 99.5 F 100 H 18 173/123 91 11/24/19 12:33 11/24/19 09:33 11/24/19 12:33 11/24/19 12:33 11/24/19 09:13 General appearance: Present: no acute distress, well-nourished - EENT Eyes: Present: PERRL, EOM intact ENT: hearing intact, clear oral mucosa, dentition normal - Neck Neck: Present: supple, normal ROM - Respiratory Respiratory effort: normal Respiratory: bilateral: CTA - Cardiovascular Rhythm: regular Heart Sounds: Present: S1 & S2. Absent: gallop, rub - Extremities Extremities: no ischemia, No edema, Full ROM - Abdominal General gastrointestinal: soft, non-tender, non-distended, normal bowel sounds - Integumentary Integumentary: Present: clear, warm, dry - Neurologic Neurologic: CNII-XII intact, moves all extremities Results - Labs CBC & Chem 7: 11/22/19 09:21 11/23/19 06:54 Labs: Laboratory Last Values WBC 5.2 K/mm3 (4.5-11.0) 11/22/19 09:21 RBC 5.95 M/mm3 (3.65-5.03) H 11/22/19 09:21 Hgb 16.8 gm/dl (11.8-15.2) H 11/22/19 09:21 Hct 48.2 % (35.5-45.6) H 11/22/19 09:21 MCV 81 fl (84-94) L 11/22/19 09:21 MCH 28 pg (28-32) 11/22/19 09:21 MCHC 35 % (32-34) H 11/22/19 09:21 RDW 13.1 % (13.2-15.2) L 11/22/19 09:21 Plt Count 174 K/mm3 (140-440) 11/22/19 09:21 Lymph % (Auto) 25.9 % (13.4-35.0) 11/22/19 09:21 [place] % (Auto) 7.5 % (0.0-7.3) H 11/22/19 09:21 Eos % (Auto) 2.7 % (0.0-4.3) 11/22/19 09:21 Baso % (Auto) 1.1 % (0.0-1.8) 11/22/19 09:21 Lymph # 1.3 K/mm3 (1.2-5.4) 11/22/19 09:21 [place] # 0.4 K/mm3 (0.0-0.8) 11/22/19 09:21 Eos # 0.1 K/mm3 (0.0-0.4) 11/22/19 09:21 Baso # 0.1 K/mm3 (0.0-0.1) 11/22/19 09:21 Seg Neutrophils % 62.8 % (40.0-70.0) 11/22/19 09:21 Seg Neutrophils # 3.3 K/mm3 (1.8-7.7) 11/22/19 09:21 D-Dimer 287.38 ng/mlDDU (0-234) H 11/22/19 11:13 Sodium 139 mmol/L (137-145) 11/23/19 06:54 Potassium 3.2 mmol/L (3.6-5.0) L 11/23/19 06:54 Chloride 101.5 mmol/L (98-107) 11/23/19 06:54 Carbon Dioxide 21 mmol/L (22-30) L 11/23/19 06:54 Anion Gap 20 mmol/L 11/23/19 06:54 BUN 22 mg/dL (9-20) H 11/23/19 06:54 Creatinine 2.4 mg/dL (0.8-1.5) H 11/23/19 06:54 Estimated GFR 38 ml/min 11/23/19 06:54 BUN/Creatinine Ratio 9 % 11/23/19 06:54 Glucose 107 mg/dL (75-100) H 11/23/19 06:54 POC Glucose 76 (70-105) 11/22/19 14:06 Calcium 8.6 mg/dL (8.4-10.2) 11/23/19 06:54 Total Bilirubin 1.50 mg/dL (0.1-1.2) H 11/22/19 09:21 AST 29 units/L (5-40) 11/22/19 09:21 ALT 30 units/L (7-56) 11/22/19 09:21 Alkaline Phosphatase 71 units/L (35-129) 11/22/19 09:21 Troponin T 0.031 ng/mL (0.00-0.029) H 11/23/19 05:09 NT-Pro-B Natriuret Pep 1636 pg/mL (0-450) H 11/22/19 09:21 Total Protein 7.3 g/dL (6.3-8.2) 11/22/19 09:21 Albumin 4.0 g/dL (3.9-5) 11/22/19 09:21 Albumin/Globulin Ratio 1.2 % 11/22/19 09:21 Triglycerides 199 mg/dL (2-149) H 11/22/19 13:09 Cholesterol 241 mg/dL (50-199) H 11/22/19 13:09 LDL Cholesterol Direct 173 mg/dL (50-130) H 11/22/19 13:09 HDL Cholesterol 47 mg/dL (40-59) 11/22/19 13:09 Cholesterol/HDL Ratio 5.12 % 11/22/19 13:09 Urine Color Yellow (Yellow) 11/22/19 Unknown Urine Turbidity Clear (Clear) 11/22/19 Unknown Urine pH 5.0 (5.0-7.0) 11/22/19 Unknown Ur Specific [place] 1.013 (1.003-1.030) 11/22/19 Unknown Urine Protein >500 mg/dL (Negative) 11/22/19 Unknown Urine Glucose (UA) Neg mg/dL (Negative) 11/22/19 Unknown Urine Ketones Neg mg/dL (Negative) 11/22/19 Unknown Urine Blood Sm (Negative) 11/22/19 Unknown Urine Nitrite Neg (Negative) 11/22/19 Unknown Urine Bilirubin Neg (Negative) 11/22/19 Unknown Urine Urobilinogen < 2.0 mg/dL (<2.0) 11/22/19 Unknown Ur Leukocyte Esterase Neg (Negative) 11/22/19 Unknown Urine WBC (Auto) 2.0 /HPF (0.0-6.0) 11/22/19 Unknown Urine RBC (Auto) 1.0 /HPF (0.0-6.0) 11/22/19 Unknown U Epithel Cells (Auto) < 1.0 /HPF (0-13.0) 11/22/19 Unknown Urine Bacteria (Auto) 1+ /HPF (Negative) 11/22/19 Unknown Hyaline Casts 4 /LPF 11/22/19 Unknown Urine Mucus Few /HPF 11/22/19 Unknown Active Medications - Current Medications Current Medications: Generic Name Dose Route Start Last Admin Trade Name Freq PRN Reason Stop Dose Admin Alprazolam 0.25 mg 11/22/19 16:05 11/23/19 00:25 Xanax PO 0.25 mg Q8H PRN Administration Anxiety Atorvastatin Calcium 40 mg 11/22/19 22:00 11/23/19 21:07 Lipitor PO 40 mg QHS CARLOTA Administration Clonidine HCl 0.1 mg 11/24/19 22:00 Catapres PO Q12HR CARLOTA Enoxaparin Sodium 30 mg 11/23/19 10:00 11/24/19 09:33 Enoxaparin SUB-Q 30 mg QDAY CARLOTA Administration Hydralazine HCl 10 mg 11/22/19 16:09 11/24/19 08:09 Apresoline IV 10 mg Q4HR PRN Administration Hypertension Hydralazine HCl 100 mg 11/24/19 10:11 Apresoline PO TID CARLOTA Metoprolol Tartrate 100 mg 11/24/19 11:00 Metoprolol PO BID CARLOTA Nifedipine 90 mg 11/24/19 10:11 Procardia Xl PO Q12HR CARLOTA Ondansetron HCl 4 mg 11/22/19 16:05 11/22/19 18:14 Zofran IV 4 mg Q8H PRN Administration Nausea And Vomiting Oxycodone/Acetaminophen 1 tab 11/22/19 16:05 11/24/19 07:56 Percocet 5/325 PO 1 tab Q6H PRN Administration Pain, Moderate (4-6) Sodium Chloride 10 ml 11/22/19 22:00 11/23/19 21:08 Sodium Chloride Flush Syringe 10 Ml IV 10 ml BID CARLOTA Administration Sodium Chloride 10 ml 11/22/19 16:05 Sodium Chloride Flush Syringe 10 Ml IV PRN PRN LINE FLUSH Zolpidem Tartrate 5 mg 11/22/19 16:05 Ambien PO QHS PRN Sleeplessness
[2019-11-24] MEDS: cloNIDine 0.2 MG TAB PO SCH ×2 (17:38→21:33)
[2019-11-24] MEDS: METOPROLOL TARTRATE 100 MG TAB PO SCH ×2 (17:38→21:33)
[2019-11-24] MEDS: NIFEdipine XL 60 MG TAB PO SCH (21:33)
[2019-11-24] MEDS ORDERED: cloNIDine 0.1 MG TAB PO SCH (22:00)
[2019-11-25] MEDS ORDERED: REGADENOSON 0.4 MG/5 ML INJ IV ONE ×2 (08:35→08:37)
[2019-11-25] MEDS: NIFEdipine XL 60 MG TAB PO SCH ×2 (11:46→11:58)
[2019-11-25] MEDS: METOPROLOL TARTRATE 100 MG TAB PO SCH (11:47)
[2019-11-25] MEDS: ENOXAPARIN 30 MG/0.3 ML INJ SUB-Q SCH (11:47)
--- NOTE | 2019-11-25 11:49 | Progress Note ---
Assessment and Plan S/p lexiscan MPI stress test this AM which was negative. Currently stable cardiac status. Pt may discharge from cardiology standpoint. Recommend follow up in our office with Dr. Lange within 1-2 weeks of discharge ([phone]). The patient has been seen in conjunction with Dr. Iris Mayo who agrees with the assessment and plan of care. - Patient Problems (1) Hypertensive emergency Current Visit: Yes Status: Acute (2) Acute on chronic renal insufficiency Current Visit: Yes Status: Acute (3) Hematuria Current Visit: Yes Status: Acute (4) Elevated troponin Current Visit: Yes Status: Acute (5) Hyperlipidemia Current Visit: Yes Status: Chronic (6) Noncompliance Current Visit: Yes Status: Chronic (7) History of cardiomyopathy Current Visit: Yes Status: Chronic Subjective Date of service: 11/25/19 Principal diagnosis: abnormal troponin Interval history: for stress test, no complaints. in SR on tele. Objective Last Vital Signs Temp 98.6 F 11/25/19 07:38 Pulse 74 11/25/19 10:00 Resp 16 11/25/19 10:00 BP 114/68 11/25/19 09:25 Pulse Ox 98 11/25/19 08:05 - Physical Examination General: Appears Well HEENT: Positive: PERRL Neck: Positive: neck supple, trachea midline Cardiac: Positive: Reg Rate and Rhythm, S1/S2 Lungs: Positive: Decreased Breath Sounds Neuro: Positive: Grossly Intact Abdomen: Negative: Tender Skin: Negative: Rash Musculoskeletal: No Pain Extremities: Absent: edema - Imaging and Cardiology EKG: image reviewed Echo: report reviewed ( 06/2016 showed EF 10-15%, LA mild to mod dilated, trace MR and TR, LV mildly dilated, restrictive diastolic filling, RV systolic function mod reduced. ), other (11/22/2019 normal LV function moderate LVH EF 5560% no significant regurgitation) - EKG Sinus rhythms and dysrhythmias: sinus rhythm Chamber hypertrophy or enlargement: left ventricular hypertro Repolarization changes or abnormalities: nonspecific abnormality, ST segment, and/or T wave
[2019-11-25] MEDS: hydrALAZINE 25 MG TAB PO SCH (11:55)
[2019-11-25] MEDS: cloNIDine 0.2 MG TAB PO SCH (11:56)
--- NOTE | 2019-11-25 13:20 | Discharge Summary ---
Providers - Providers Date of Admission: 11/22/19 16:05 Date of discharge: 11/25/19 Attending physician: AFSHAN PALACIOS 11/22/19 14:49 Consult to Physician [CONS] Urgent Comment: Consulting Provider: JOJO CASTAÑEDA Physician Instructions: discussed with Taina De La O Reason For Exam: ELEVATED TROPONIN Primary care physician: BERNABE LUNA MD Hospitalization Reason for admission: Accelerated hypertension, chest pain Condition: Stable Hospital course: Patient 34-year-old male with a history of hypertension, hyperlipidemia, chronic kidney disease presents with a chief complaint of hematuria x2 weeks. After gone in detail patient states that the majority of his symptoms was hematospermia and not so much hematuria per Dr. Goldstein's H&P. Patient also stated he has been noncompliant with his antihypertensive medications after losing insurance and moving back and forth to [facility]. Patient states be en out of meds greater than 5 weeks. Initial work-up negative. Patient initial blood pressure on admission was 262/168. Therefore, the patient was admitted for hypertensive emergency and hematuria and acute on chronic kidney disease. Urinalysis did not reveal any RBCs. Patient's creatinine appeared to be near his baseline of 2.0. The patient was started on antihypertensive medications and blood pressure stabilized. Patient initially required nicardipine drip and later transitioned to p.o. medications. Also, during hospitalization patient complained of chest pain for which cardiology evaluated the patient. Patient underwent Lexiscan MPI stress test that was completed this morning it was found to be negative. Therefore, patient is felt to have received maximal hospital benefit and will be discharged home. Dedicated discharge time 35 minutes. Exam - Constitutional Vitals: Temp Pulse Resp BP Pulse Ox 98.6 F 67 16 105/55 98 11/25/19 07:38 11/25/19 11:47 11/25/19 10:00 11/25/19 11:55 11/25/19 08:05 Plan Follow up with: BERNABE LUNA MD [Primary Care Provider] - 3-5 Days
[2019-11-25 20:08] VITALS: BP 125/72
--- NOTE | 2019-11-25 23:19 | Treadmill Report ---
NUCLEAR STRESS TEST PROCEDURE IN DETAIL: The patient was brought to the stress lab in a postabsorptive state, given 10 mCi of technetium 99m at rest. The patient underwent rest imaging. The patient underwent Lexiscan stress test per standard protocol. At peak stress, the patient was given 26 mCi of automotive brake technician 99m. Shortly thereafter, the patient underwent stress imaging. Technically difficult study due to body habitus and subdiaphragmatic activity. Imaging is obtained in the horizontal long axis, vertical long axis, and short axis views. Technically difficult, but grossly no evidence of significant fixed or reversible perfusion defects suggestive of prior infarction or ischemia. Gated wall motion reveals normal systolic thickening, calculated ejection fraction of 51%, no TID. CONCLUSIONS: 1. Technically difficult study, but grossly probably normal without evidence of significant degree of ischemia or prior infarction. 2. Normal left ventricular systolic performance without evidence of transient ischemic dilatation or stress-induced segmental wall motion abnormalities. JOB# [id number] ROGER/LADONNA
== END 2019-11-25 17:45 | disposition home or self-care (01) ==
LOC: ED 08:42 → CC1 16:05 → 4A 22:09
PROVIDERS: ADMIT Internal Medicine; ATTEND Hospitalist
DX: I16.1 Hypertensive emergency (principal); I13.0 Hypertensive heart and chronic kidney disease with heart failure and stage 1 through stage 4 chronic kidney disease, or unspecified chronic kidney disease; I50.9 Heart failure, unspecified; N18.9 Chronic kidney disease, unspecified; R79.89 Other specified abnormal findings of blood chemistry; R31.9 Hematuria, unspecified; E78.5 Hyperlipidemia, unspecified; J45.909 Unspecified asthma, uncomplicated; I42.9 Cardiomyopathy, unspecified; Z91.14 Patient's other noncompliance with medication regimen; Z79.899 Other long term (current) drug therapy
CPT/HCPCS: 36415; 71045; 78452; 80048; 80053; 80061; 81001; 82962; 83880; 84484; 85025; 85379; 93005; 93010; 93017; 93306; 96365; 96366; 96372; 96375; 96376; A9270-GY; A9502; G0378; J0360; J1650; J2405; J2785; J7050

== ENCOUNTER 2022-05-07 11:08 | Inpatient (IN) | payer SELFPAY ==
[2022-05-07] MEDS ORDERED: MORPHINE 4 MG/1 ML INJ IV ONE ×2 (11:53→11:55)
[2022-05-07] MEDS ORDERED: METOPROLOL TARTRATE 5 MG/5 ML INJ IV ONE (11:53)
[2022-05-07] MEDS ORDERED: LACTATED RINGERS 500 ML IV ONE (11:53)
--- NOTE | 2022-05-07 11:55 | Emergency Department Report ---
ED General Adult HPI - General Chief complaint: High BP Stated complaint: HBP/BLOOD IN URINE Time Seen by Provider: 05/07/22 11:42 Source: patient, RN notes reviewed, old records reviewed Mode of arrival: Ambulatory Limitations: No Limitations - History of Present Illness Initial comments: The patient was evaluated in the emergency department for symptoms described in the history of present illness. He/she was evaluated in the context of the global COVID-19 pandemic, which necessitated consideration that the patient might be at risk for infection with the virus that causes COVID-19. Institutional protocols and algorithms that pertain to the evaluation of patients at risk for COVID-19 are in a state of rapid change based on information released by regulatory bodies including the CDC and federal and state organizations. These policies and algorithms were followed during the patient's care in the emergency department. Please note that these policies, procedures and recommendations changed on a rapid basis. This is a pleasant and cooperative 37-year-old gentleman who presents to the department today with a complaint of high blood pressure, and possible hematospermia and/or hematuria. This patient was admitted to this hospital in 2020 for similar symptoms. He has a past medical history of hypertension, hyperlipidemia, chronic renal insufficiency. He had an echocardiogram which demonstrated an EF of 55 to 60% in 2020. 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 He is not currently taking any medications. He currently denies headache, neck pain, chest pain, anterior abdominal pain, he denies dysuria, he does endorse testicular discomfort, and he is left-sided mid flank back pain. He is sexually active with 1 female partner, and participates in only vaginal and oral intercourse. He does not use condoms and he denies anal intercourse. -: Gradual, days(s) Location: back Severity scale (0 -10): 0 Quality: aching Consistency: intermittent Worsens with: none - Related Data Previous Rx's Medication Instructions Recorded Last Taken Type ALPRAZolam [Xanax TAB] 0.25 mg PO Q8H PRN tablet 11/25/19 Unknown Rx AtorvaSTATin [Lipitor] 40 mg PO QHS #30 tablet 11/25/19 Unknown Rx Metoprolol [Lopressor TAB] 100 mg PO BID #60 tablet 11/25/19 Unknown Rx NIFEdipine XL [Procardia Xl] 90 mg PO Q12HR #60 tablet 11/25/19 Unknown Rx hydrALAZINE [Apresoline TAB] 100 mg PO TID #90 tablet 11/25/19 Unknown Rx oxyCODONE /ACETAMINOPHEN [Percocet 1 tab PO Q6H PRN #12 tablet 11/25/19 Unknown Rx 5/325 mg] Allergies Allergy/AdvReac Type Severity Reaction Status Date / Time dog dander Allergy Unknown Verified 05/07/22 11:15 ED Review of Systems ROS: Stated complaint: HBP/BLOOD IN URINE Other details as noted in HPI Constitutional: denies: fever Eyes: denies: eye discharge ENT: denies: epistaxis Respiratory: denies: cough Cardiovascular: denies: chest pain Gastrointestinal: denies: abdominal pain Genitourinary: hematuria Musculoskeletal: back pain Neurological: denies: weakness ED Past Medical Hx - Past Medical History Hx Hypertension: Yes Hx CVA: No Hx Congestive Heart Failure: Yes (nicmo) Hx Diabetes: No Hx Deep Vein Thrombosis: No Hx Pulmonary Embolism: Yes Hx GERD: No Hx Liver Disease: No Hx Renal Disease: Yes Hx Sickle Cell Disease: No Hx Arthritis: No Hx Headaches / Migraines: No Hx Seizures: No Hx Kidney Stones: No Hx Psychiatric Treatment: No Hx Asthma: Yes Hx COPD: No Hx Tuberculosis: No Hx Dementia: No Hx HIV: No Additional medical history: pneumonia and PE in 04/2016 - Social History Smoking Status: Former Smoker - Medications Home Medications: Home Medications Medication Instructions Recorded Confirmed Last Taken Type ALPRAZolam [Xanax TAB] 0.25 mg PO Q8H PRN tablet 11/25/19 Unknown Rx AtorvaSTATin [Lipitor] 40 mg PO QHS #30 tablet 11/25/19 Unknown Rx Metoprolol [Lopressor TAB] 100 mg PO BID #60 tablet 11/25/19 Unknown Rx NIFEdipine XL [Procardia Xl] 90 mg PO Q12HR #60 tablet 11/25/19 Unknown Rx hydrALAZINE [Apresoline TAB] 100 mg PO TID #90 tablet 11/25/19 Unknown Rx oxyCODONE /ACETAMINOPHEN [Percocet 1 tab PO Q6H PRN #12 tablet 11/25/19 Unknown Rx 5/325 mg] ED Physical Exam - General Limitations: No Limitations General appearance: alert, in no apparent distress - Head Head exam: Present: atraumatic, normocephalic - Eye Eye exam: Present: normal appearance, EOMI. Absent: nystagmus - ENT ENT exam: Present: normal exam, normal orophraynx, mucous membranes moist, normal external ear exam - Neck Neck exam: Present: normal inspection, full ROM. Absent: tenderness, meningismus - Respiratory Respiratory exam: Present: normal lung sounds bilaterally. Absent: respiratory distress, wheezes, rhonchi, stridor, decreased breath sounds - Cardiovascular Cardiovascular Exam: Present: normal rhythm, tachycardia, normal heart sounds. Absent: regular rate, bradycardia, irregular rhythm, systolic murmur, diastolic murmur, rubs, gallop - GI/Abdominal GI/Abdominal exam: Present: soft. Absent: distended, tenderness, guarding, alison ound, rigid, pulsatile mass, hernia - Rectal Rectal exam: Present: deferred - exam: Present: normal inspection, other ( patient provides consent for male genital examination. Chaperoned by nurse Lorri Hanna). Absent: testicular tenderness External exam: Present: normal external exam, other (There is normal testicular lie. There is normal cremasteric reflex. There is no testicular tenderness. There is no testicular swelling) - Extremities Exam Extremities exam: Present: normal inspection, full ROM, normal capillary refill, other (2+ pulses noted in the bilateral upper and lower extremities. There is no palpable cord. negative Homans sign. Muscular compartments are soft. The pelvis is stable.). Absent: pedal edema, calf tenderness - Back Exam Back exam: Present: normal inspection. Absent: tenderness, CVA tenderness (R), CVA tenderness (L), paraspinal tenderness, vertebral tenderness - Neurological Exam Neurological exam: Present: alert, oriented X3, other (No facial droop. Tongue midline. Extraocular movements intact bilaterally. Facial sensation intact to light touch in V1, V2, V3 distribution bilaterally. 5 and a 5 strength in 4 extremities. Sensation intact to light touch in 4 extremities.). Absent: motor sensory deficit - Psychiatric Psychiatric exam: Present: normal affect, normal mood - Skin Skin exam: Present: warm, dry, intact, normal color. Absent: rash ED Course Vital Signs 05/07/22 05/07/22 05/07/22 11:13 11:47 11:51 Temperature 98.1 F 97.5 F L Pulse Rate 111 H 107 H 108 H Respiratory 18 12 18 Rate Blood Pressure Blood Pressure 247/195 166/107 [Left] O2 Sat by Pulse 98 98 100 Oximetry 05/07/22 05/07/22 05/07/22 12:01 12:15 12:31 Temperature Pulse Rate 106 H 101 H Respiratory 15 15 Rate Blood Pressure 166/107 166/107 219/180 Blood Pressure [Left] O2 Sat by Pulse 100 100 Oximetry 05/07/22 05/07/22 05/07/22 12:36 12:46 13:01 Temperature Pulse Rate 101 H 99 H 94 H Respiratory 18 19 Rate Blood Pressure 228/175 219/180 224/171 Blood Pressure [Left] O2 Sat by Pulse 99 99 Oximetry 05/07/22 05/07/22 05/07/22 13:15 13:31 13:45 Temperature Pulse Rate 99 H 99 H Respiratory 23 22 12 Rate Blood Pressure 216/175 235/181 219/180 Blood Pressure [Left] O2 Sat by Pulse 99 99 96 Oximetry 05/07/22 05/07/22 05/07/22 14:01 14:15 14:31 Temperature Pulse Rate 94 H 95 H 93 H Respiratory 16 18 13 Rate Blood Pressure 239/187 225/173 233/181 Blood Pressure [Left] O2 Sat by Pulse 97 98 99 Oximetry 05/07/22 05/07/22 05/07/22 14:38 14:45 15:01 Temperature Pulse Rate 98 H 96 H 89 Respiratory 12 12 Rate Blood Pressure 226/177 226/177 222/169 Blood Pressure [Left] O2 Sat by Pulse 99 98 Oximetry 05/07/22 05/07/22 05/07/22 15:15 15:31 15:45 Temperature Pulse Rate 80 87 88 Respiratory 20 14 14 Rate Blood Pressure 225/161 205/147 191/150 Blood Pressure [Left] O2 Sat by Pulse 98 100 100 Oximetry 05/07/22 05/07/22 16:01 16:04 Temperature Pulse Rate 87 85 Respiratory 23 21 Rate Blood Pressure 191/134 Blood Pressure 174/134 [Left] O2 Sat by Pulse 99 99 Oximetry - Reevaluation(s) Reevaluation #1: 05/07/22 12:56 Differential diagnosis, include not limited to: Renal colic, hypertensive renal disease, hematospermia, hematuria, AAA, medication noncompliance, uncontrolled hypertension Assessment and plan: 37-year-old gentleman with a recurrent history of poorly controlled blood pressure, report of hematuria and hematospermia. He is initially mildly tachycardic, and hypertensive. He was treated initially with Lopressor and morphine, tachycardia resolved, but hypertension persists. There is no pulsatile abdominal mass, he has no chest pain, and he has equal pulses in the upper and lower extremities. His and testicular exam are benign and unremarkable. Multiple phone calls made to the lab to request acquisition of laboratory studies. This has resulted in a delay in disposition. A CT scan of the abdomen pelvis is obtained, which demonstrates no evidence of renal stone, or AAA. Do not suspect dissection at this time. Currently awaiting remainder of laboratory studies, urinalysis and EKG. We will dose with labetalol. We will reassess. I discussed the plan of care with the patient. He is agreeable to the plan of care 05/07/22 13:46 X-ray of the chest unremarkable. CT scan abdomen pelvis negative for acute findings. Patient is found to have acute on chronic renal insufficiencies. He is still persistently hypertensive after initial metoprolol IV. Have ordered labetalol IV. We will also continue his current outpatient medications. If still persistently hypertensive after these interventions, we will consider a drip. I have recommended admission to the medical service for acute on chronic renal insufficiency, and hypertensive urgency. The patient is agreeable to this plan of care. Hospital physician, Dr. Kevin Sánchez to admit to I[facility] Receiving team requests nephrology consultation. I have requested nephrology c onsultation, and I am waiting for them to call back. I suspect that this is a chronic progression of patient's renal insufficiency, likely secondary to medication noncompliance. He is resting comfortably on his stretcher and in no acute distress 05/07/22 15:22 Patient in no acute distress. Blood pressure 222/169. Additional labetalol ordered. Reevaluation #2: 05/07/22 16:44 Blood pressure improved at 174/134 mmHg. - Consultations Consultation #1: 05/07/22 13:56 I discussed the patient's history, physical, laboratory studies and imaging studies and clinical impression with nephrology on-call, Dr. Ren. He is in agreement with the plan of care, and the nephrology group will follow in consultation. ED Medical Decision Making - Lab Data Result diagrams: 05/07/22 12:17 05/07/22 12:17 Vital Signs 05/07/22 05/07/22 05/07/22 11:13 11:51 12:36 Temperature 98.1 F 97.5 F L Pulse Rate 111 H 108 H 101 H Respiratory 18 18 Rate Blood Pressure 228/175 Blood Pressure 247/195 166/107 [Left] O2 Sat by Pulse 98 100 Oximetry Lab Results 05/07/22 05/07/22 Range/Units 12:17 12:17 WBC 8.1 (4.5-11.0) K/mm3 RBC 5.30 H (3.65-5.03) M/mm3 Hgb 15.1 (11.8-15.2) gm/dl Hct 43.1 (35.5-45.6) % MCV 81 L (84-94) fl MCH 29 (28-32) pg MCHC 35 H (32-34) % RDW 13.0 L (13.2-15.2) % Plt Count 183 (140-440) K/mm3 Lymph % (Auto) 16.1 (13.4-35.0) % Clay % (Auto) 8.2 H (0.0-7.3) % Eos % (Auto) 1.2 (0.0-4.3) % Baso % (Auto) 1.9 H (0.0-1.8) % Lymph # (Auto) 1.3 (1.2-5.4) K/mm3 Clay # (Auto) 0.7 (0.0-0.8) K/mm3 Eos # (Auto) 0.1 (0.0-0.4) K/mm3 Baso # (Auto) 0.2 H (0.0-0.1) K/mm3 Seg Neutrophils % 72.6 H (40.0-70.0) % Seg Neutrophils # 5.9 (1.8-7.7) K/mm3 Sodium 139 (137-145) mmol/L Potassium 3.2 L (3.6-5.0) mmol/L Chloride 99.6 (98-107) mmol/L Carbon Dioxide 26 (22-30) mmol/L Anion Gap 17 mmol/L BUN 22 H (9-20) mg/dL Creatinine 4.5 H (0.8-1.3) mg/dL Estimated GFR 18 ml/min BUN/Creatinine Ratio 5 % Glucose 94 (75-100) mg/dL Calcium 9.5 (8.4-10.2) mg/dL Magnesium 2.00 (1.7-2.3) mg/dL Total Bilirubin 1.70 H (0.1-1.2) mg/dL AST 22 (5-40) units/L ALT 17 (7-56) units/L Alkaline Phosphatase 75 (35-129) units/L Total Creatine Kinase 297 H (55-170) units/L Total Protein 7.1 (6.3-8.2) g/dL Albumin 3.7 L (3.9-5) g/dL Albumin/Globulin Ratio 1.1 % - EKG Data -: EKG Interpreted by Or EKG shows normal: sinus rhythm Rate: normal - EKG Data When compared to previous EKG there are: previous EKG unavailable (Unable to access old EKG in system.) 05/07/22 13:46 The EKG is interpreted at 1320. Sinus rhythm, rate 99 bpm. Left axis deviation, left anterior fascicular block, high left ventricular voltage. QTC 483 ms. MA interval 1 5 3 ms. Abnormal EKG. Not a STEMI. Unable to access prior EKG - Radiology Data Radiology results: pending, report reviewed, image reviewed CT ABDOMEN AND PELVIS WITHOUT CONTRAST INDICATION: back pain, hematuria, htn, history of renal failure CONTRAST: Without IV COMPARISON: 05/13/2016, report unavailable All CT scans at this location are performed using CT dose reduction for ALARA by means of automated exposure control. FINDINGS: Lung bases clear. No pneumoperitoneum. Gallbladder and bile ducts normal. Probable small right renal cysts measuring up to 1.2 cm in the mid to lower poles though technically indeterminate. No other abdominal masses. No lymphadenopathy. No free fluid. No bowel obstruction. Appendix normal. No inflammatory changes. No urinary tract calculi or evidence of obstruction. Urinary bladder shows no abnormalities. No pelvic masses. No significant abdominal wall herniation. IMPRESSION: 1. No acute abnormalities are seen 2. Small hypodensities in the right kidney are not well characterized but probably are small cysts. Signer Name: Shane Concepcion MD Signed: 05/07/2022 11:31 AM Workstation Name: [id number] CHEST 2 VIEWS INDICATION / CLINICAL INFORMATION: htn upper back pain. FINDINGS: SUPPORT DEVICES: None. HEART / MEDIASTINUM: Prominent tortuosity of the thoracic aorta.. The heart size is normal. LUNGS / PLEURA: No significant pulmonary or pleural abnormality. No pneumothorax. ADDITIONAL FINDINGS: No significant additional findings. IMPRESSION: 1. No acute findings. No significa nt change from 11/22/2019. Signer Name: Jean Lr MD Signed: 05/07/2022 12:04 PM Workstation Name: [email or web address] Critical Care Time: Yes Critical care time in (mins) excluding proc time.: 35 Critical care attestation.: If time is entered above; I have spent that time in minutes in the direct care of this critically ill patient, excluding procedure time. ED Disposition Clinical Impression: Acute on chronic renal insufficiency, Hypertensive urgency, malignant Disposition: ADMITTED INPATIENT Is pt being admited?: Yes Does the pt Need Aspirin: No Condition: Good Referrals: PRIMARY CARE, [Primary Care Provider] - 3-5 Days
--- NOTE | 2022-05-07 12:35 | Cat Scan Report ---
CT ABDOMEN AND PELVIS WITHOUT CONTRAST INDICATION: back pain, hematuria, htn, history of renal failure CONTRAST: Without IV COMPARISON: 05/13/2016, report unavailable All CT scans at this location are performed using CT dose reduction for ALARA by means of automated e xposure control. FINDINGS: Lung bases clear. No pneumoperitoneum. Gallbladder and bile ducts normal. Probable small ri ght renal cysts measuring up to 1.2 cm in the mid to lower poles though technically indeterminate. No other abdominal masses. No lymphadenopathy. No free fluid. No bowel obstruction. Appendix normal. No inflammatory changes. No urinary tract calculi or evidence of obstruction. Urinary bladder shows no abnormalities. No pelvic masses. No significant abdominal wall herniation. IMPRESSION: 1. No acute abnormalities are seen 2. Small hypodensities in the right kidney are not well characterized but probably are small cysts. Signer Name: Shane Concepcion MD Signed: 05/07/2022 12:31 PM Workstation Name: [id number]
[2022-05-07 13:04] LABS: Hematocrit 43.1 % (35.5-45.6); Hemoglobin 15.1 gm/dl (11.8-15.2); Mean Corpuscular HGB Conc 35 % (32-34); Mean Corpuscular Volume 81 fl (84-94); Platelet Count 183 K/mm3 (140-440)
--- NOTE | 2022-05-07 13:09 | XRay Report ---
CHEST 2 VIEWS INDICATION / CLINICAL INFORMATION: htn upper back pain. FINDINGS: SUPPORT DEVICES: None. HEART / MEDIASTINUM: Prominent tortuosity of the thoracic aorta.. The heart size is normal. LUNGS / PLEURA: No significant pulmonary or pleural abnormality. No pneumothorax. ADDITIONAL FINDINGS: No significant additional findings. IMPRESSION: 1. No acute findings. No significant change from 11/22/2019. Signer Name: Jean Lr MD Signed: 05/07/2022 1:04 PM Workstation Name: [id number]
[2022-05-07 13:16] LABS: Basophils # (Auto) 0.2 K/mm3 (0.0-0.1); Basophils % (Auto) 1.9 % (0.0-1.8); Eosinophils # (Auto) 0.1 K/mm3 (0.0-0.4); Eosinophils % (Auto) 1.2 % (0.0-4.3); Lymphocytes # (Auto) 1.3 K/mm3 (1.2-5.4); Lymphocytes % (Auto) 16.1 % (13.4-35.0); Monocytes # (Auto) 0.7 K/mm3 (0.0-0.8); Monocytes % (Auto) 8.2 % (0.0-7.3)
[2022-05-07 13:24] LABS: Albumin 3.7 g/dL (3.9-5); Calcium 9.5 mg/dL (8.4-10.2)
[2022-05-07] MEDS ORDERED: hydrALAZINE 25 MG TAB PO STA (13:45)
[2022-05-07] MEDS ORDERED: METOPROLOL TARTRATE 100 MG TAB PO STA (13:49)
[2022-05-07] MEDS ORDERED: NIFEdipine XL 90 MG TAB PO STA (13:50)
[2022-05-07 13:53] LABS: Bilirubin,Urine NEG (Negative); Blood,Urine LG (Negative); Color,Urine Yellow (Yellow); Urobilinogen,Urine < 2.0 mg/dL (<2.0)
[2022-05-07 14:42] LABS: Mucus,Urine FEW /HPF
[2022-05-07 14:45] LABS: Protein,Urine >500 mg/dL (Negative)
[2022-05-07] MEDS ORDERED: POTASSIUM CHLORIDE ER 20 MEQ TAB PO ONE ×2 (15:21→20:14)
--- NOTE | 2022-05-07 17:59 | History and Physical Report ---
History of Present Illness Date of examination: 05/07/22 Date of admission: 05/07/2022 Chief complaint: Dizziness and pink urine History of present illness: 37-year-old -[place] male with history of hypertension, congestive heart failure and renal insufficiency comes in for weakness and dizziness. In the emergency room patient was found to have a very high blood pressure of 230/130. Patient has not been taking his medications for the last couple of months because of lack of insurance. Patient had a ejection fraction of 15 to 20% once which is improved to 55 to 60% in 2019. Patient also noticed pinkish urine. Patient is supposed to follow-up with nephrology which he has not done Echo done in 06/2016 was found to be ejection fraction of 10 to 15%. Over time it has improved and echo done on 11/22/2019 shows normal LV function and moderate LVH and ejection fraction of 55 to 60%. No significant shortness of breath. Some orthopnea present. No chest pain. No recent follow-up with PCP and does not have a PCP. Patient was informed about [facility] clinic and compliance with medications. Last discharge summary of 11/22/2019 was reviewed. Shows baseline creatinine of 2.0 and echocardiogram with ejection fraction of 55 to 60% and LVH Patient had Lexiscan in 11/22/2019 and was negative - Past Medical History --Hypertension: Yes --Congestive ve Heart Failure: Yes --Renal Disease: Yes--stage III --Asthma: Yes --Additional medical history: pneumonia and PE in 04/2016 -Past surgical history -- none -Family history -- HTN - Social History -- Former Smoker - Medications Home Medications: Home Medications Medication Instructions Recorded Confirmed Last Taken Type ALPRAZolam [Xanax TAB] 0.25 mg PO Q8H PRN tablet 11/25/19 Unknown Rx AtorvaSTATin [Lipitor] 40 mg PO QHS #30 tablet 11/25/19 Unknown Rx Metoprolol [Lopressor TAB] 100 mg PO BID #60 tablet 11/25/19 Unknown Rx NIFEdipine XL [Procardia Xl] 90 mg PO Q12HR #60 tablet 11/25/19 Unknown Rx hydrALAZINE [Apresoline TAB] 100 mg PO TID #90 tablet 11/25/19 Unknown Rx oxyCODONE /ACETAMINOPHEN [Percocet 1 tab PO Q6H PRN #12 tablet 11/25/19 Unknown Rx 5/325 mg] Review of Systems ROS: Constitutional feels weak and short of breath HEENT no sore throat no post nasal drip no diplopia Neck no neck stiffness no lymph gland enlargement Chest and lungs no shortness of breath cough or wheezing CVS no chest pain no diaphoresis no palpitations GI no nausea no vomiting no diarrhea Genitourinary system no dysuria no flank pain Musculoskeletal system no muscle pains no joint pains 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 Skin no rash no itching Psychiatric no depression no homicidal or suicidal tendencies Hematologic no lymphedema or bruising Endocrine no polydipsia no polyuria no cold intolerance no heat intolerance Medications and Allergies Allergies Allergy/AdvReac Type Severity Reaction Status Date / Time dog dander Allergy Unknown Verified 05/07/22 11:15 Home Medications Medication Instructions Recorded Confirmed Last Taken Type ALPRAZolam [Xanax TAB] 0.25 mg PO Q8H PRN tablet 11/25/19 Unknown Rx AtorvaSTATin [Lipitor] 40 mg PO QHS #30 tablet 11/25/19 Unknown Rx Metoprolol [Lopressor TAB] 100 mg PO BID #60 tablet 11/25/19 Unknown Rx NIFEdipine XL [Procardia Xl] 90 mg PO Q12HR #60 tablet 11/25/19 Unknown Rx hydrALAZINE [Apresoline TAB] 100 mg PO TID #90 tablet 11/25/19 Unknown Rx oxyCODONE /ACETAMINOPHEN [Percocet 1 tab PO Q6H PRN #12 tablet 11/25/19 Unknown Rx 5/325 mg] Exam - Constitutional Vitals: Temp Pulse Resp BP Pulse Ox 97.5 F L 85 21 174/134 99 05/07/22 11:51 05/07/22 16:04 05/07/22 16:04 05/07/22 16:04 05/07/22 16:04 General appearance: Present: no acute distress, well-nourished - EENT Eyes: Present: PERRL ENT: hearing intact, clear oral mucosa - Neck Neck: Present: supple, normal ROM - Respiratory Respiratory effort: normal Respiratory: bilateral: CTA - Cardiovascular Heart rate: 78 Rhythm: regular Heart Sounds: Present: S1 & S2. Absent: rub, click - Extremities Extremities: pulses symmetrical, No edema Peripheral Pulses: within normal limits - Abdominal General gastrointestinal: Present: soft, non-tender, non-distended, normal bowel sounds Male genitourinary: Present: normal - Integumentary Integumentary: Present: clear, warm, dry - Musculoskeletal Musculoskeletal: gait normal, strength equal bilaterally - Psychiatric Psychiatric: appropriate mood/affect, intact judgment & insight - Neurologic Neurologic: CNII-XII intact, moves all extremities HEART Score - HEART Score History: Moderately suspicious Age: < 45 Risk factors: 1-2 risk factors Troponin: < normal limit - Critical Actions Critical Actions: 0-3 pts:0.9-1.7%risk of adverse cardiac event.Candidate for discharge Results - Labs CBC & Chem 7: 05/07/22 12:17 05/07/22 12:17 Labs: Laboratory Last Values WBC 8.1 K/mm3 (4.5-11.0) 05/07/22 12:17 RBC 5.30 M/mm3 (3.65-5.03) H 05/07/22 12:17 Hgb 15.1 gm/dl (11.8-15.2) 05/07/22 12:17 Hct 43.1 % (35.5-45.6) 05/07/22 12:17 MCV 81 fl (84-94) L 05/07/22 12:17 MCH 29 pg (28-32) 05/07/22 12:17 MCHC 35 % (32-34) H 05/07/22 12:17 RDW 13.0 % (13.2-15.2) L 05/07/22 12:17 Plt Count 183 K/mm3 (140-440) 05/07/22 12:17 Lymph % (Auto) 16.1 % (13.4-35.0) 05/07/22 12:17 [place] % (Auto) 8.2 % (0.0-7.3) H 05/07/22 12:17 Eos % (Auto) 1.2 % (0.0-4.3) 05/07/22 12:17 Baso % (Auto) 1.9 % (0.0-1.8) H 05/07/22 12:17 Lymph # (Auto) 1.3 K/mm3 (1.2-5.4) 05/07/22 12:17 [place] # (Auto) 0.7 K/mm3 (0.0-0.8) 05/07/22 12:17 Eos # (Auto) 0.1 K/mm3 (0.0-0.4) 05/07/22 12:17 Baso # (Auto) 0.2 K/mm3 (0.0-0.1) H 05/07/22 12:17 Seg Neutrophils % 72.6 % (40.0-70.0) H 05/07/22 12:17 Seg Neutrophils # 5.9 K/mm3 (1.8-7.7) 05/07/22 12:17 Sodium 139 mmol/L (137-145) 05/07/22 12:17 Potassium 3.2 mmol/L (3.6-5.0) L 05/07/22 12:17 Chloride 99.6 mmol/L (98-107) 05/07/22 12:17 Carbon Dioxide 26 mmol/L (22-30) 05/07/22 12:17 Anion Gap 17 mmol/L 05/07/22 12:17 BUN 22 mg/dL (9-20) H 05/07/22 12:17 Creatinine 4.5 mg/dL (0.8-1.3) H 05/07/22 12:17 Estimated GFR 18 ml/min 05/07/22 12:17 BUN/Creatinine Ratio 5 % 05/07/22 12:17 Glucose 94 mg/dL (75-100) 05/07/22 12:17 Calcium 9.5 mg/dL (8.4-10.2) 05/07/22 12:17 Magnesium 2.00 mg/dL (1.7-2.3) 05/07/22 12:17 Total Bilirubin 1.70 mg/dL (0.1-1.2) H 05/07/22 12:17 AST 22 units/L (5-40) 05/07/22 12:17 ALT 17 units/L (7-56) 05/07/22 12:17 Alkaline Phosphatase 75 units/L (35-129) 05/07/22 12:17 Total Creatine Kinase 297 units/L (55-170) H 05/07/22 12:17 Total Protein 7.1 g/dL (6.3-8.2) 05/07/22 12:17 Albumin 3.7 g/dL (3.9-5) L 05/07/22 12:17 Albumin/Globulin Ratio 1.1 % 05/07/22 12:17 Urine Color Yellow (Yellow) 05/07/22 13:40 Urine Turbidity Clear (Clear) 05/07/22 13:40 Urine pH 6.0 (5.0-7.0) 05/07/22 13:40 Ur Specific [place] 1.009 (1.003-1.030) 05/07/22 13:40 Urine Protein >500 mg/dL (Negative) 05/07/22 13:40 Urine Glucose (UA) Neg mg/dL (Negative) 05/07/22 13:40 Urine Ketones Neg mg/dL (Negative) 05/07/22 13:40 Urine Blood Lg (Negative) 05/07/22 13:40 Urine Nitrite Neg (Negative) 05/07/22 13:40 Urine Bilirubin Neg (Negative) 05/07/22 13:40 Urine Urobilinogen < 2.0 mg/dL (<2.0) 05/07/22 13:40 Ur Leukocyte Esterase Neg (Negative) 05/07/22 13:40 Urine WBC (Auto) 3.0 /HPF (0.0-6.0) 05/07/22 13:40 Urine RBC (Auto) 82.0 /HPF (0.0-6.0) 05/07/22 13:40 Urine Mucus Few /HPF 05/07/22 13:40 Urine Yeast (Budding) 1+ /HPF 05/07/22 13:40 Short CBC 05/07/22 Range/Units 12:17 WBC 8.1 (4.5-11.0) K/mm3 Hgb 15.1 (11.8-15.2) gm/dl Hct 43.1 (35.5-45.6) % Plt Count 183 (140-440) K/mm3 BMP 05/07/22 12:17 Sodium 139 Potassium 3.2 L Chloride 99.6 Carbon Dioxide 26 BUN 22 H Creatinine 4.5 H Glucose 94 Calcium 9.5 Cardiac Enzymes 05/07/22 Range/Units 12:17 Total Creatine Kinase 297 H (55-170) units/L Liver Function 05/07/22 Range/Units 12:17 Total Bilirubin 1.70 H (0.1-1.2) mg/dL AST 22 (5-40) units/L ALT 17 (7-56) units/L Alkaline Phosphatase 75 (35-129) units/L Albumin 3.7 L (3.9-5) g/dL Urine 05/07/22 Range/Units 13:40 Urine Color Yellow (Yellow) Urine pH 6.0 (5.0-7.0) Ur Specific [place] 1.009 (1.003-1.030) Urine Protein >500 (Negative) mg/dL Urine Glucose (UA) Neg (Negative) mg/dL - Imaging and Cardiology EKG: report reviewed (Sinus rhythm, left anterior fascicular block, and probable anterior anterior infarct) Chest x-ray: report reviewed Imaging and Cardiology: CT of the abdomen No acute abnormalities are seen Small hypodensities in the right kidney are not well characterized but probably a small cyst Assessment and Plan Advance Directives: Yes (Full code) VTE prophylaxis?: Chemical Plan of care discussed with patient/family: Yes - Patient Problems (1) Hypertensive urgency, malignant Current Visit: Yes Status: Acute Plan to address problem: Patient initiated on hydralazine 100 mg every 8 hours, carvedilol 25 mg every 12 and amlodipine 10 mg daily. If blood pressures not controlled we will change the amlodipine to Procardia XL 90 mg daily IV hydralazine 10 mg every 3 hours as needed for blood pressure more than 160/100. Patient is very noncompliant Patient counseled about compliance (2) Acute kidney injury superimposed on chronic kidney disease Current Visit: No Status: Acute Plan to address problem: His baseline creatinine was 2.0 Today creatinine is 4.5 We will give fluid challenge Patient also has proteinuria May need biopsy of the kidneys--we will defer to nephrology (3) CHF (congestive heart failure) Current Visit: Yes Status: Chronic Plan to address problem: Ejection fraction is improved from 20% to 55% in 2022 We will recheck echocardiogram for ejection fraction. It is surprising that the ejection fraction is increased from 20% to 55% No Lasix at this point (4) Hypokalemia Current Visit: Yes Status: Acute Plan to address problem: Supplemented (5) DVT prophylaxis Current Visit: Yes Status: Acute Plan to address problem: On heparin and GI prophylaxis (6) Advance care planning Current Visit: Yes Status: Acute Plan to address problem: Prognosis diagnosis and care plan discussed labs discussed advance directives discussed care plan +30 minutes
--- NOTE | 2022-05-07 18:03 | Event Note ---
Appreciate nephrology consult. Patient presenting with hypertensive emergency, ANA. Agree with current management, cardene gtt prn if BP resistant. Imaging reviewed, no acute obstruction. Urinalysis noted with blood/protein, suspect chronicity, check UP/C, serologies, PTH, phos. Official consult will follow
[2022-05-07] MEDS ORDERED: ACETAMINOPHEN 325 MG TAB PO PRN (18:29)
[2022-05-07] MEDS ORDERED: ONDANSETRON 4 MG/2 ML INJ IV PRN (18:29)
[2022-05-07] MEDS ORDERED: HYDROmorphone 0.5 MG/0.5 ML INJ IV PRN (18:36)
[2022-05-07] MEDS ORDERED: oxyCODONE /ACETAMINOPHEN 5-325MG TAB PO PRN (18:36)
[2022-05-07] MEDS ORDERED: METOCLOPRAMIDE 10 MG/2 ML INJ IV PRN (18:36)
[2022-05-07] MEDS ORDERED: MORPHINE 2 MG/1 ML INJ IV PRN (18:36)
[2022-05-07] MEDS ORDERED: hydrALAZINE 20 MG/1 ML INJ IV PRN (18:52)
[2022-05-07] MEDS ORDERED: SODIUM CHLORIDE 0.45% 1000 ML 1,000 ML IV SCH (19:00)
[2022-05-07] MEDS: hydrALAZINE 100 MG TAB PO SCH (19:05)
[2022-05-07] MEDS: FAMOTIDINE 20 MG/2 ML INJ IV SCH (22:59)
[2022-05-07] MEDS: carvediloL 25 MG TAB PO SCH (23:00)
[2022-05-07] MEDS: HEPARIN 5,000 UNIT/1 ML VIAL SUB-Q SCH (23:00)
[2022-05-08 07:47] LABS: Basophils # (Auto) 0.1 K/mm3 (0.0-0.1); Basophils % (Auto) 1.4 % (0.0-1.8); Eosinophils % (Auto) 0.4 % (0.0-4.3); Hematocrit 42.3 % (35.5-45.6); Hemoglobin 14.5 gm/dl (11.8-15.2); Lymphocytes # (Auto) 0.7 K/mm3 (1.2-5.4); Mean Corpuscular HGB Conc 34 % (32-34); Mean Corpuscular Volume 82 fl (84-94); Monocytes # (Auto) 0.3 K/mm3 (0.0-0.8); Monocytes % (Auto) 3.8 % (0.0-7.3); Platelet Count 229 K/mm3 (140-440); Red Blood Count 5.15 M/mm3 (3.65-5.03); Red Cell Distribution Width 13.4 % (13.2-15.2)
[2022-05-08 08:05] LABS: Albumin 3.4 g/dL (3.9-5); Calcium 9.1 mg/dL (8.4-10.2)
[2022-05-08] MEDS ORDERED: SODIUM CHLORIDE 0.9% 1000 ML 1,000 ML IV ONE (09:00)
[2022-05-08] MEDS: carvediloL 25 MG TAB PO SCH ×2 (09:25→21:38)
[2022-05-08] MEDS: FAMOTIDINE 20 MG/2 ML INJ IV SCH ×2 (09:25→21:40)
[2022-05-08] MEDS: hydrALAZINE 100 MG TAB PO SCH ×3 (09:25→21:37)
[2022-05-08] MEDS: HEPARIN 5,000 UNIT/1 ML VIAL SUB-Q SCH ×2 (09:25→21:41)
[2022-05-08] MEDS: POTASSIUM CHLORIDE ER 20 MEQ TAB PO SCH ×2 (09:26→21:39)
--- NOTE | 2022-05-08 09:31 | Consultation ---
History of Present Illness - Reason for Consult Consult date: 05/08/22 acute renal failure, chronic renal failure, accelerated hypertension - History of Present Illness 37-year-old man with history of hypertension, congestive heart failure, and chronic kidney disease presents for weakness and dizziness, found to have high blood pressure of 230/130. Patient has not been taking his medications for the last couple of months because of lack of insurance. Noted to have poor EF on echocardiograms in past. Patient notes having stage 3 kidney disease, was previously seen by nephrology. Last creatinine at [facility] 10/2021- 3.39. Of note had creatinine 4.5 in 09/2021, labile previously from 3.2-3.8 over past year. Was following with Dr. 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 However has been unable to follow up due to lack of insurance. Currently, he notes feeling well, no chest pain/edema/appetite changes/nausea/vomiting. Does feel that urine output somewhat decreased. - Past Medical History --Hypertension: Yes --Congestive ve Heart Failure: Yes --Renal Disease: Yes--stage III --Asthma: Yes --Additional medical history: pneumonia and PE in 04/2016 -Past surgical history -- none -Family history -- HTN - Social History -- Former Smoker Medications and Allergies Allergies Allergy/AdvReac Type Severity Reaction Status Date / Time dog dander Allergy Unknown Verified 05/07/22 11:15 Home Medications Medication Instructions Recorded Confirmed Last Taken Type ALPRAZolam [Xanax TAB] 0.25 mg PO Q8H PRN tablet 11/25/19 Unknown Rx AtorvaSTATin [Lipitor] 40 mg PO QHS #30 tablet 11/25/19 Unknown Rx Metoprolol [Lopressor TAB] 100 mg PO BID #60 tablet 11/25/19 Unknown Rx NIFEdipine XL [Procardia Xl] 90 mg PO Q12HR #60 tablet 11/25/19 Unknown Rx hydrALAZINE [Apresoline TAB] 100 mg PO TID #90 tablet 11/25/19 Unknown Rx oxyCODONE /ACETAMINOPHEN [Percocet 1 tab PO Q6H PRN #12 tablet 11/25/19 Unknown Rx 5/325 mg] Active Meds: Active Medications Acetaminophen (Acetaminophen 325 Mg Tab) 650 mg PO Q4H PRN PRN Reason: Pain MILD(1-3)/Fever >100.5/KATE Amlodipine Besylate (Amlodipine 10 Mg Tab) 10 mg PO Q24H [facility] Atorvastatin Calcium (Atorvastatin 40 Mg Tab) 40 mg PO QHS [facility] Last Admin: 05/07/22 23:00 Dose: 40 mg Carvedilol (Carvedilol 25 Mg Tab) 25 mg PO BID [facility] Last Admin: 05/08/22 09:25 Dose: 25 mg Famotidine (Famotidine 20 Mg/2 Ml Inj) 10 mg IV BID [facility] Last Admin: 05/08/22 09:25 Dose: 10 mg Heparin Sodium (Porcine) (Heparin 5,000 Unit/1 Ml Vial) 5,000 unit SUB-Q Q12HR [facility] Last Admin: 05/08/22 09:25 Dose: 5,000 unit Hydralazine HCl (Hydralazine 100 Mg Tab) 100 mg PO Q8HR [facility] Last Admin: 05/08/22 09:25 Dose: Not Given Hydralazine HCl (Hydralazine 20 Mg/1 Ml Inj) 10 mg IV Q3H PRN PRN Reason: Blood Pressure Hydromorphone HCl (Hydromorphone 0.5 Mg/0.5 Ml Inj) 0.5 mg IV Q3H PRN PRN Reason: Pain , Severe (7-10) Sodium Chloride (Nacl 0.9% 1000 Ml) 1,000 mls @ 500 mls/hr IV BOLUS ONE Stop: 05/08/22 10:59 Last Admin: 05/08/22 09:19 Dose: 500 mls/hr Metoclopramide HCl (Metoclopramide 10 Mg/2 Ml Inj) 10 mg IV Q6H PRN PRN Reason: Nausea And Vomiting Morphine Sulfate (Morphine 2 Mg/1 Ml Inj) 2 mg IV Q4H PRN PRN Reason: Pain, Moderate (4-6) Ondansetron HCl (Ondansetron 4 Mg/2 Ml Inj) 4 mg IV Q3H PRN PRN Reason: Nausea And Vomiting Oxycodone/Acetaminophen (Oxycodone /Acetaminophen 5-325mg Tab) 1 tab PO Q6H PRN PRN Reason: Pain, Moderate (4-6) Potassium Chloride (Potassium Chloride Er 20 Meq Tab) 40 meq PO BID [facility] Stop: 05/08/22 22:01 Last Admin: 05/08/22 09:26 Dose: 40 meq Sodium Chloride (Sodium Chloride 0.9% 10 Ml Flush Syringe) 10 ml IV BID [facility] Last Admin: 05/08/22 09:26 Dose: 10 ml Sodium Chloride (Sodium Chloride 0.9% 10 Ml Flush Syringe) 10 ml IV PRN PRN PRN Reason: LINE FLUSH Review of Systems All systems: negative (as per HPI) Exam - Vital Signs Vital signs: Vital Signs Temp Pulse Resp BP Pulse Ox 98.1 F 111 H 18 247/195 98 05/07/22 11:13 05/07/22 11:13 05/07/22 11:13 05/07/22 11:13 05/07/22 11:13 - General Appearance General appearance: well-developed, well-nourished EENT: ATNC Neck: Present: neck supple Respiratory: Clear to Ascultation Heart: regular, S1S2 Gastrointestinal: Present: normoactive bowel sounds Integumentary: no rash, warm and dry Neurologic: no focal deficit, no asterixis, alert and oriented x3 Results - Lab Results 05/08/22 07:21 05/08/22 07:21 Most recent lab results Calcium 9.1 mg/dL (8.4-10.2) 05/08/22 07:21 Magnesium 2.00 mg/dL (1.7-2.3) 05/07/22 12:17 Assessment and Plan # Acute Kidney Injury in CKD 4: creatinine 4.5->4.3, higher than previously but not far from baseline. High risk for kidney failure given poorly managed BP, prior biopsy findings. - continue BP control - PTH 147 consistent with secondary hyperparathyroidism, check phos. Serum calcium WNL - renal imaging WNL - urinalysis with blood/protein, has been biopsied previously, defer serologies - avoid nephrotoxins - renally dose medications - strict Is/Os - no immediate indication for HD based on clinical status/volume/electrolytes, hopeful to maintain off for now, will need ongoing ESKD planning/education preferably in outpatient setting - replete K prn # HTN: hypertensive crisis on arrival, now improved on hydralazine 100mg TID, carvedilol 25mg BID, amlodipine 10mg. # CHF: noted to have EF 20->55%, note echo repeat pending. CXR WNL
--- NOTE | 2022-05-08 09:51 | Progress Note ---
Assessment and Plan Assessment and plan: #Hypertensive emergencyresolved Patient endorses not being adherent with medications due to financial limitations Initiated with hydralazine 100 mg every 8 hours, Coreg 25 mg twice daily, and amlodipine 10 mg daily in the ED. - home medications: None - current medications: Coreg 25 mg twice daily, p.o. hydralazine 100 mg every 8 hours, amlodipine 10 mg daily - SBP goal <160 and DBP goal <90 while inpatient - continue to monitor #ANA on CKD stage III/IV Creatinine 4.3 (on admission; previously 3.0 in 2020) Imaging unremarkable for hydronephrosis. Pending urine lites. Renally dose meds and avoid nephrotoxic drugs. Patient previously was unable to follow with nephrology due to insurance/financial issues for glomerulonephropathy. Nephrology consulted; appreciate recs Administering IV fluid resuscitation to help with improvement of creatinine. #Possible heart failure Pending TTE to evaluate cardiac function. Holding on diuresis as the patient is euvolemic. Records revealing that the patient's EF increased from 20% to 55% in the recent past. Continue to monitor. #Hypokalemia Potassium 3.2 Repleted. Monitor with repeat BMP in the morning. #Mild protein caloric malnutrition Albumin 3.4 Starting dietary supplementation. #Advanced care planning -Disease education conducted, care plan discussed, diagnoses discussed, prognosis discussed, and patient acknowledges understanding with care plan -Time: +30 min Disposition Plan: Continue medical management Total Time Spent with Patient (Minutes): 30 min History Interval history: No acute events overnight. Hospitalist Physical - Constitutional Vitals: Temp Pulse Resp BP Pulse Ox 97.9 F 74 17 143/82 98 05/08/22 07:48 05/08/22 09:25 05/08/22 08:51 05/08/22 09:25 05/08/22 08:51 General appearance: Present: no acute distress, well-nourished - EENT Eyes: Present: PERRL, EOM intact ENT: hearing intact, clear oral mucosa, dentition normal - Neck Neck: Present: supple, normal ROM - Respiratory Respiratory effort: normal Respiratory: bilateral: CTA - Cardiovascular Rhythm: regular Heart Sounds: Present: S1 & S2 - Extremities Extremities: no ischemia, pulses intact, pulses symmetrical, No edema, normal temperature, normal color, Full ROM Peripheral Pulses: within normal limits - Abdominal General gastrointestinal: soft, non-tender, non-distended, normal bowel sounds - Integumentary Integumentary: Present: clear, warm, dry - Psychiatric Psychiatric: appropriate mood/affect, intact judgment & insight, memory intact, cooperative - Neurologic Neurologic: CNII-XII intact, moves all extremities - Allied Health Allied health notes reviewed: nursing HEART Score - HEART Score Age: < 45 Risk factors: 1-2 risk factors Troponin: < normal limit - Critical Actions Critical Actions: 0-3 pts:0.9-1.7%risk of adverse cardiac event.Candidate for discharge Results - Labs CBC & Chem 7: 05/08/22 07:21 05/08/22 07:21 Labs: Laboratory Last Values WBC 8.3 K/mm3 (4.5-11.0) 05/08/22 07:21 RBC 5.15 M/mm3 (3.65-5.03) H 05/08/22 07:21 Hgb 14.5 gm/dl (11.8-15.2) 05/08/22 07:21 Hct 42.3 % (35.5-45.6) 05/08/22 07:21 MCV 82 fl (84-94) L 05/08/22 07:21 MCH 28 pg (28-32) 05/08/22 07:21 MCHC 34 % (32-34) 05/08/22 07:21 RDW 13.4 % (13.2-15.2) 05/08/22 07:21 Plt Count 229 K/mm3 (140-440) 05/08/22 07:21 Lymph % (Auto) 9.0 % (13.4-35.0) L 05/08/22 07:21 [place] % (Auto) 3.8 % (0.0-7.3) 05/08/22 07:21 Eos % (Auto) 0.4 % (0.0-4.3) 05/08/22 07:21 Baso % (Auto) 1.4 % (0.0-1.8) 05/08/22 07:21 Lymph # (Auto) 0.7 K/mm3 (1.2-5.4) L 05/08/22 07:21 [place] # (Auto) 0.3 K/mm3 (0.0-0.8) 05/08/22 07:21 Eos # (Auto) 0.0 K/mm3 (0.0-0.4) 05/08/22 07:21 Baso # (Auto) 0.1 K/mm3 (0.0-0.1) 05/08/22 07:21 Seg Neutrophils % 85.4 % (40.0-70.0) H 05/08/22 07:21 Seg Neutrophils # 7.1 K/mm3 (1.8-7.7) 05/08/22 07:21 Sodium 135 mmol/L (137-145) L 05/08/22 07:21 Potassium 3.2 mmol/L (3.6-5.0) L 05/08/22 07:21 Chloride 97.8 mmol/L (98-107) L 05/08/22 07:21 Carbon Dioxide 22 mmol/L (22-30) 05/08/22 07:21 Anion Gap 18 mmol/L 05/08/22 07:21 BUN 26 mg/dL (9-20) H 05/08/22 07:21 Creatinine 4.3 mg/dL (0.8-1.3) H 05/08/22 07:21 Estimated GFR 19 ml/min 05/08/22 07:21 BUN/Creatinine Ratio 6 % 05/08/22 07:21 Glucose 100 mg/dL (75-100) 05/08/22 07:21 Calcium 9.1 mg/dL (8.4-10.2) 05/08/22 07:21 Magnesium 2.00 mg/dL (1.7-2.3) 05/07/22 12:17 Total Bilirubin 1.50 mg/dL (0.1-1.2) H 05/08/22 07:21 AST 22 units/L (5-40) 05/08/22 07:21 ALT 14 units/L (7-56) 05/08/22 07:21 Alkaline Phosphatase 70 units/L (35-129) 05/08/22 07:21 Total Creatine Kinase 297 units/L (55-170) H 05/07/22 12:17 Total Protein 6.7 g/dL (6.3-8.2) 05/08/22 07:21 Albumin 3.4 g/dL (3.9-5) L 05/08/22 07:21 Albumin/Globulin Ratio 1.0 % 05/08/22 07:21 PTH Intact 147.2 pg/mL (15-65) H 05/08/22 07:21 Urine Color Yellow (Yellow) 05/07/22 13:40 Urine Turbidity Clear (Clear) 05/07/22 13:40 Urine pH 6.0 (5.0-7.0) 05/07/22 13:40 Ur Specific [place] 1.009 (1.003-1.030) 05/07/22 13:40 Urine Protein >500 mg/dL (Negative) 05/07/22 13:40 Urine Glucose (UA) Neg mg/dL (Negative) 05/07/22 13:40 Urine Ketones Neg mg/dL (Negative) 05/07/22 13:40 Urine Blood Lg (Negative) 05/07/22 13:40 Urine Nitrite Neg (Negative) 05/07/22 13:40 Urine Bilirubin Neg (Negative) 05/07/22 13:40 Urine Urobilinogen < 2.0 mg/dL (<2.0) 05/07/22 13:40 Ur Leukocyte Esterase Neg (Negative) 05/07/22 13:40 Urine WBC (Auto) 3.0 /HPF (0.0-6.0) 05/07/22 13:40 Urine RBC (Auto) 82.0 /HPF (0.0-6.0) 05/07/22 13:40 Urine Mucus Few /HPF 05/07/22 13:40 Urine Yeast (Budding) 1+ /HPF 05/07/22 13:40 Khan/IV: Voiding Method Urinal Active Medications - Current Medications Current Medications: Generic Name Dose Route Start Last Admin Trade Name Freq PRN Reason Stop Dose Admin Acetaminophen 650 mg 05/07/22 18:29 Acetaminophen 325 Mg Tab PO Q4H PRN Pain MILD(1-3)/Fever >100.5/KATE Amlodipine Besylate 10 mg 05/07/22 19:00 Amlodipine 10 Mg Tab PO Q24H [facility] Atorvastatin Calcium 40 mg 05/07/22 22:00 05/07/22 23:00 Atorvastatin 40 Mg Tab PO 40 mg QHS [facility] Administration Carvedilol 25 mg 05/07/22 19:00 05/08/22 09:25 Carvedilol 25 Mg Tab PO 25 mg BID [facility] Administration Famotidine 10 mg 05/07/22 22:00 05/08/22 09:25 Famotidine 20 Mg/2 Ml Inj IV 10 mg BID [facility] Administration Heparin Sodium (Porcine) 5,000 unit 05/07/22 22:00 05/08/22 09:25 Heparin 5,000 Unit/1 Ml Vial SUB-Q 5,000 unit Q12HR [facility] Administration Hydralazine HCl 100 mg 05/07/22 19:00 05/08/22 09:25 Hydralazine 100 Mg Tab PO Not Given Q8HR [facility] Hydralazine HCl 10 mg 05/07/22 18:52 Hydralazine 20 Mg/1 Ml Inj IV Q3H PRN Blood Pressure Hydromorphone HCl 0.5 mg 05/07/22 18:36 Hydromorphone 0.5 Mg/0.5 Ml Inj IV Q3H PRN Pain , Severe (7-10) Sodium Chloride 1,000 mls @ 500 mls/hr 05/08/22 09:00 05/08/22 09:19 Nacl 0.9% 1000 Ml IV 05/08/22 10:59 500 mls/hr BOLUS ONE Administration Metoclopramide HCl 10 mg 05/07/22 18:36 Metoclopramide 10 Mg/2 Ml Inj IV Q6H PRN Nausea And Vomiting Morphine Sulfate 2 mg 05/07/22 18:36 Morphine 2 Mg/1 Ml Inj IV Q4H PRN Pain, Moderate (4-6) Ondansetron HCl 4 mg 05/07/22 18:29 Ondansetron 4 Mg/2 Ml Inj IV Q3H PRN Nausea And Vomiting Oxycodone/Acetaminophen 1 tab 05/07/22 18:36 Oxycodone /Acetaminophen 5-325mg Tab PO Q6H PRN Pain, Moderate (4-6) Potassium Chloride 40 meq 05/08/22 10:00 05/08/22 09:26 Potassium Chloride Er 20 Meq Tab PO 05/08/22 22:01 40 meq BID [facility] Administration Sodium Chloride 10 ml 05/07/22 22:00 05/08/22 09:26 Sodium Chloride 0.9% 10 Ml Flush Syringe IV 10 ml BID [facility] Administration Sodium Chloride 10 ml 05/07/22 18:29 Sodium Chloride 0.9% 10 Ml Flush Syringe IV PRN PRN LINE FLUSH
[2022-05-08 14:11] LABS: Chloride, Urine 19.7 mmolL (110-250); Creatinine,Urine 154.3 mg/dL (0.1-20.0)
[2022-05-08 14:23] LABS: Microalbumin/Creatinine Ratio 1749.8 ug/mg
[2022-05-08] MEDS: amLODIPine 10 MG TAB PO SCH (18:16)
[2022-05-09 05:52] LABS: Calcium 8.2 mg/dL (8.4-10.2)
[2022-05-09] MEDS: hydrALAZINE 100 MG TAB PO SCH ×3 (06:07→22:23)
[2022-05-09] MEDS ORDERED: SODIUM CHLORIDE 0.9% 1000 ML 1,000 ML IV ONE (07:50)
[2022-05-09] MEDS ORDERED: CALCIUM GLUCONATE 1,000 MG in SODIUM CHLORIDE 0.9% 100 ML IV ONE (07:51)
[2022-05-09] MEDS ORDERED: CALC GLUCONATE 1GM/NS 100 ML 1 GM/100 ML BAG IV ONE (09:00)
[2022-05-09] MEDS: FAMOTIDINE 10 MG TAB PO SCH ×2 (09:47→22:21)
[2022-05-09] MEDS: HEPARIN 5,000 UNIT/1 ML VIAL SUB-Q SCH ×2 (09:48→22:30)
[2022-05-09] MEDS: carvediloL 25 MG TAB PO SCH ×2 (09:48→22:23)
--- NOTE | 2022-05-09 10:39 | Electrocardiograph Report ---
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
--- NOTE | 2022-05-09 10:47 | Progress Note ---
Assessment and Plan Assessment and plan: #Hypertensive emergencyresolved Patient endorses not being adherent with medications due to financial limitations Initiated with hydralazine 100 mg every 8 hours, Coreg 25 mg twice daily, and amlodipine 10 mg daily in the ED. - home medications: None - current medications: Coreg 25 mg twice daily, p.o. hydralazine 100 mg every 8 hours, amlodipine 10 mg daily - SBP goal <160 and DBP goal <90 while inpatient - continue to monitor #ANA on CKD stage IVworsened Creatinine 4.3--> 5.1 (on admission; previously 3.0 in 2020) Imaging unremarkable for hydronephrosis. Pending urine lites. Renally dose meds and avoid nephrotoxic drugs. Patient previously was unable to follow with nephrology due to insurance/financial issues for glomerulonep hropathy. Nephrology consulted; appreciate recs Administering IV fluid resuscitation to help with improvement of creatinine. #Possible heart failure Pending TTE to evaluate cardiac function. Holding on diuresis as the patient is euvolemic. Records revealing that the patient's EF increased from 20% to 55% in the recent past. Continue to monitor. #Hypokalemiaresolved Potassium 3.2 Repleted. Monitor with repeat BMP in the morning. #Mild protein caloric malnutrition Albumin 3.4 Continue dietary supplementation. #Advanced care planning -Disease education conducted, care plan discussed, diagnoses discussed, prognosis discussed, and patient acknowledges understanding with care plan -Time: +30 min Disposition Plan: Continue medical management Total Time Spent with Patient (Minutes): 30 min History Interval history: No acute events over night. The patient denies fevers, chills, nausea, vomiting, abdominal pain, chest pain/pressure, shortness of breath, urinary symptoms, weakness, or confusion. Hospitalist Physical - Constitutional Vitals: Temp Pulse Resp BP Pulse Ox 98.3 F 88 16 111/65 96 05/09/22 08:10 05/09/22 08:10 05/09/22 06:08 05/09/22 08:10 05/09/22 08:10 General appearance: Present: no acute distress, well-nourished - EENT Eyes: Present: PERRL, EOM intact ENT: hearing intact, clear oral mucosa, dentition normal - Neck Neck: Present: supple, normal ROM - Respiratory Respiratory effort: normal Respiratory: bilateral: CTA - Cardiovascular Rhythm: regular Heart Sounds: Present: S1 & S2 - Extremities Extremities: no ischemia, pulses intact, pulses symmetrical, No edema, normal temperature, normal color, Full ROM Peripheral Pulses: within normal limits - Abdominal General gastrointestinal: soft, non-tender, non-distended, normal bowel sounds - Integumentary Integumentary: Present: clear, warm, dry - Psychiatric Psychiatric: appropriate mood/affect, memory intact, cooperative - Neurologic Neurologic: CNII-XII intact, moves all extremities - Allied Health Allied health notes reviewed: nursing HEART Score - HEART Score Age: < 45 Risk factors: 1-2 risk factors Troponin: < normal limit - Critical Actions Critical Actions: 0-3 pts:0.9-1.7%risk of adverse cardiac event.Candidate for discharge Results - Labs CBC & Chem 7: 05/08/22 07:21 05/09/22 05:03 Labs: Laboratory Last Values WBC 8.3 K/mm3 (4.5-11.0) 05/08/22 07:21 RBC 5.15 M/mm3 (3.65-5.03) H 05/08/22 07:21 Hgb 14.5 gm/dl (11.8-15.2) 05/08/22 07:21 Hct 42.3 % (35.5-45.6) 05/08/22 07:21 MCV 82 fl (84-94) L 05/08/22 07:21 MCH 28 pg (28-32) 05/08/22 07:21 MCHC 34 % (32-34) 05/08/22 07:21 RDW 13.4 % (13.2-15.2) 05/08/22 07:21 Plt Count 229 K/mm3 (140-440) 05/08/22 07:21 Lymph % (Auto) 9.0 % (13.4-35.0) L 05/08/22 07:21 [place] % (Auto) 3.8 % (0.0-7.3) 05/08/22 07:21 Eos % (Auto) 0.4 % (0.0-4.3) 05/08/22 07:21 Baso % (Auto) 1.4 % (0.0-1.8) 05/08/22 07:21 Lymph # (Auto) 0.7 K/mm3 (1.2-5.4) L 05/08/22 07:21 [place] # (Auto) 0.3 K/mm3 (0.0-0.8) 05/08/22 07:21 Eos # (Auto) 0.0 K/mm3 (0.0-0.4) 05/08/22 07:21 Baso # (Auto) 0.1 K/mm3 (0.0-0.1) 05/08/22 07:21 Seg Neutrophils % 85.4 % (40.0-70.0) H 05/08/22 07:21 Seg Neutrophils # 7.1 K/mm3 (1.8-7.7) 05/08/22 07:21 Sodium 136 mmol/L (137-145) L 05/09/22 05:03 Potassium 3.7 mmol/L (3.6-5.0) 05/09/22 05:03 Chloride 104.2 mmol/L (98-107) 05/09/22 05:03 Carbon Dioxide 23 mmol/L (22-30) 05/09/22 05:03 Anion Gap 13 mmol/L 05/09/22 05:03 BUN 34 mg/dL (9-20) H 05/09/22 05:03 Creatinine 5.1 mg/dL (0.8-1.3) H 05/09/22 05:03 Estimated GFR 16 ml/min 05/09/22 05:03 BUN/Creatinine Ratio 7 % 05/09/22 05:03 Glucose 101 mg/dL (75-100) H 05/09/22 05:03 POC Glucose 97 mg/dL (70-105) 05/08/22 12:14 Calcium 8.2 mg/dL (8.4-10.2) L 05/09/22 05:03 Magnesium 2.00 mg/dL (1.7-2.3) 05/07/22 12:17 Total Bilirubin 1.50 mg/dL (0.1-1.2) H 05/08/22 07:21 AST 22 units/L (5-40) 05/08/22 07:21 ALT 14 units/L (7-56) 05/08/22 07:21 Alkaline Phosphatase 70 units/L (35-129) 05/08/22 07:21 Total Creatine Kinase 297 units/L (55-170) H 05/07/22 12:17 Total Protein 6.7 g/dL (6.3-8.2) 05/08/22 07:21 Albumin 3.4 g/dL (3.9-5) L 05/08/22 07:21 Albumin/Globulin Ratio 1.0 % 05/08/22 07:21 PTH Intact 147.2 pg/mL (15-65) H 05/08/22 07:21 Urine Color Yellow (Yellow) 05/07/22 13:40 Urine Turbidity Clear (Clear) 05/07/22 13:40 Urine pH 6.0 (5.0-7.0) 05/07/22 13:40 Ur Specific [place] 1.009 (1.003-1.030) 05/07/22 13:40 Urine Protein >500 mg/dL (Negative) 05/07/22 13:40 Urine Glucose (UA) Neg mg/dL (Negative) 05/07/22 13:40 Urine Ketones Neg mg/dL (Negative) 05/07/22 13:40 Urine Blood Lg (Negative) 05/07/22 13:40 Urine Nitrite Neg (Negative) 05/07/22 13:40 Urine Bilirubin Neg (Negative) 05/07/22 13:40 Urine Urobilinogen < 2.0 mg/dL (<2.0) 05/07/22 13:40 Ur Leukocyte Esterase Neg (Negative) 05/07/22 13:40 Urine WBC (Auto) 3.0 /HPF (0.0-6.0) 05/07/22 13:40 Urine RBC (Auto) 82.0 /HPF (0.0-6.0) 05/07/22 13:40 Urine Mucus Few /HPF 05/07/22 13:40 Urine Yeast (Budding) 1+ /HPF 05/07/22 13:40 Urine Osmolality 286 Mosm/kg 05/08/22 Unknown Urine Creatinine 154.3 mg/dL (0.1-20.0) H 05/08/22 Unknown Urine Microalbumin 270.0 mg/dL (0.1-34.0) H 05/08/22 Unknown Microalb/Creat Ratio 1749.8 ug/mg 05/08/22 Unknown Urine Sodium 32 mmol/L 05/08/22 Unknown Urine Potassium 21.17 mmol/L 05/08/22 Unknown Urine Chloride 19.7 mmolL (110-250) L 05/08/22 Unknown Khan/IV: Voiding Method Toilet Active Medications - Current Medications Current Medications: Generic Name Dose Route Start Last Admin Trade Name Freq PRN Reason Stop Dose Admin Acetaminophen 650 mg 05/07/22 18:29 Acetaminophen 325 Mg Tab PO Q4H PRN Pain MILD(1-3)/Fever >100.5/KATE Amlodipine Besylate 10 mg 05/07/22 19:00 05/08/22 18:16 Amlodipine 10 Mg Tab PO 10 mg Q24H CARLOTA Administration Atorvastatin Calcium 40 mg 05/07/22 22:00 05/08/22 21:43 Atorvastatin 40 Mg Tab PO 40 mg QHS CARLOTA Administration Carvedilol 25 mg 05/07/22 19:00 05/09/22 09:48 Carvedilol 25 Mg Tab PO 25 mg BID CARLOTA Administration Famotidine 10 mg 05/09/22 10:00 05/09/22 09:47 Famotidine 10 Mg Tab PO 10 mg BID CARLOTA Administration Heparin Sodium (Porcine) 5,000 unit 05/07/22 22:00 05/09/22 09:48 Heparin 5,000 Unit/1 Ml Vial SUB-Q 5,000 unit Q12HR CARLOTA Administration Hydralazine HCl 100 mg 05/07/22 19:00 05/09/22 06:07 Hydralazine 100 Mg Tab PO 100 mg Q8HR CARLOTA Administration Hydralazine HCl 10 mg 05/07/22 18:52 Hydralazine 20 Mg/1 Ml Inj IV Q3H PRN SBP >/=160; DBP >/=100 Hydromorphone HCl 0.5 mg 05/07/22 18:36 Hydromorphone 0.5 Mg/0.5 Ml Inj IV Q3H PRN Pain , Severe (7-10) Sodium Chloride 1,000 mls @ 125 mls/hr 05/09/22 11:00 Nacl 0.9% 1000 Ml IV DIRECT CARLOTA Metoclopramide HCl 10 mg 05/07/22 18:36 Metoclopramide 10 Mg/2 Ml Inj IV Q6H PRN Nausea And Vomiting Morphine Sulfate 2 mg 05/07/22 18:36 Morphine 2 Mg/1 Ml Inj IV Q4H PRN Pain, Moderate (4-6) Ondansetron HCl 4 mg 05/07/22 18:29 Ondansetron 4 Mg/2 Ml Inj IV Q3H PRN Nausea And Vomiting Oxycodone/Acetaminophen 1 tab 05/07/22 18:36 Oxycodone /Acetaminophen 5-325mg Tab PO Q6H PRN Pain, Moderate (4-6) Sodium Chloride 10 ml 05/07/22 22:00 05/09/22 10:00 Sodium Chloride 0.9% 10 Ml Flush Syringe IV 10 ml BID CARLOTA Administration Sodium Chloride 10 ml 05/07/22 18:29 Sodium Chloride 0.9% 10 Ml Flush Syringe IV PRN PRN LINE FLUSH
[2022-05-09] MEDS ORDERED: SODIUM CHLORIDE 0.9% 1000 ML 1,000 ML IV SCH (11:00)
--- NOTE | 2022-05-09 11:59 | Progress Note ---
Subjective Date of service: 05/09/22 Principal diagnosis: vega on ckd 4/5 Interval history: Assessment and Plan # Acute Kidney Injury in CKD 4: creatinine 5.1 and elevated, gentle ivfs, was 4.5->4.3, higher than previously but not far from baseline. High risk for kidn ey failure given poorly managed BP, prior biopsy findings. - continue BP control - PTH 147 consistent with secondary hyperparathyroidism, Serum calcium WNL - renal imaging WNL - urinalysis with blood/protein, has been biopsied previously, defer serologies - avoid nephrotoxins - renally dose medications - strict Is/Os - no immediate indication for HD based on clinical status/volume/electrolytes, hopeful to maintain off for now, will need ongoing ESKD planning/education preferably in outpatient setting - replete K prn # HTN: hypertensive crisis on arrival, amend bp meds as needed # CHF: noted to have EF 20->55%, note echo repeat pending. CXR WNL HPI: 37-year-old man with history of hypertension, congestive heart failure, and chronic kidney disease presents for weakness and dizziness, found to have high blood pressure of 230/130. Patient has not been taking his medications for the last couple of months because of lack of insurance. Noted to have poor EF on echocardiograms in past. Patient notes having stage 3 kidney disease, was previously seen by nephrology. Last creatinine at [place] 10/2021- 3.39. Of note had creatinine 4.5 in 09/2021, labile previously from 3.2-3.8 over past year. Was following with Dr. 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 However has been unable to follow up due to lack of insurance. Currently, he notes feeling well, no chest pain/edema/appetite changes/na usea/vomiting. Does feel that urine output somewhat decreased. - General Appearance General appearance: well-developed, well-nourished EENT: ATNC Neck: Present: neck supple Respiratory: Clear to Ascultation Heart: regular, S1S2 Gastrointestinal: Present: normoactive bowel sounds Integumentary: no rash, warm and dry Neurologic: no focal deficit, no asterixis, alert and oriented x3 Objective - Vital Signs Vital signs: Vital Signs - 12hr 0605/09/22 05/09/22 00:00 06:08 08:10 Temperature 98.2 F 98.3 F Pulse Rate 98 H 87 88 Respiratory 16 Rate Blood Pressure 111/65 Blood Pressure 133/78 [Left] O2 Sat by Pulse 98 96 Oximetry - Lab 05/08/22 07:21 05/09/22 05:03 Most recent lab results Calcium 8.2 mg/dL (8.4-10.2) L 05/09/22 05:03 Magnesium 2.00 mg/dL (1.7-2.3) 05/07/22 12:17 Urine Creatinine 154.3 mg/dL (0.1-20.0) H 05/08/22 Unknown Urine Sodium 32 mmol/L 05/08/22 Unknown Medications & Allergies - Medications Allergies/Adverse Reactions: Allergies dog dander Allergy (Verified 05/07/22 11:15) Unknown Active Medications: Generic Name Dose Route Start Last Admin Trade Name Freq PRN Reason Stop Dose Admin Acetaminophen 650 mg 05/07/22 18:29 Acetaminophen 325 Mg Tab PO Q4H PRN Pain MILD(1-3)/Fever >100.5/KATE Amlodipine Besylate 10 mg 05/07/22 19:00 05/08/22 18:16 Amlodipine 10 Mg Tab PO 10 mg Q24H CARLOTA Administration Atorvastatin Calcium 40 mg 05/07/22 22:00 05/08/22 21:43 Atorvastatin 40 Mg Tab PO 40 mg QHS CARLOTA Administration Carvedilol 25 mg 05/07/22 19:00 05/09/22 09:48 Carvedilol 25 Mg Tab PO 25 mg BID CARLOTA Administration Famotidine 10 mg 05/09/22 10:00 05/09/22 09:47 Famotidine 10 Mg Tab PO 10 mg BID CARLOTA Administration Heparin Sodium (Porcine) 5,000 unit 05/07/22 22:00 05/09/22 09:48 Heparin 5,000 Unit/1 Ml Vial SUB-Q 5,000 unit Q12HR CARLOTA Administration Hydralazine HCl 100 mg 05/07/22 19:00 05/09/22 06:07 Hydralazine 100 Mg Tab PO 100 mg Q8HR CARLOTA Administration Hydralazine HCl 10 mg 05/07/22 18:52 Hydralazine 20 Mg/1 Ml Inj IV Q3H PRN SBP >/=160; DBP >/=100 Hydromorphone HCl 0.5 mg 05/07/22 18:36 Hydromorphone 0.5 Mg/0.5 Ml Inj IV Q3H PRN Pain , Severe (7-10) Sodium Chloride 1,000 mls @ 125 mls/hr 05/09/22 11:00 Nacl 0.9% 1000 Ml IV DIRECT CARLOTA Metoclopramide HCl 10 mg 05/07/22 18:36 Metoclopramide 10 Mg/2 Ml Inj IV Q6H PRN Nausea And Vomiting Morphine Sulfate 2 mg 05/07/22 18:36 Morphine 2 Mg/1 Ml Inj IV Q4H PRN Pain, Moderate (4-6) Ondansetron HCl 4 mg 05/07/22 18:29 Ondansetron 4 Mg/2 Ml Inj IV Q3H PRN Nausea And Vomiting Oxycodone/Acetaminophen 1 tab 05/07/22 18:36 Oxycodone /Acetaminophen 5-325mg Tab PO Q6H PRN Pain, Moderate (4-6) Sodium Chloride 10 ml 05/07/22 22:00 05/09/22 10:00 Sodium Chloride 0.9% 10 Ml Flush Syringe IV 10 ml BID CARLOTA Administration Sodium Chloride 10 ml 05/07/22 18:29 Sodium Chloride 0.9% 10 Ml Flush Syringe IV PRN PRN LINE FLUSH
[2022-05-09] MEDS: SODIUM CHLORIDE 0.45% 1000 ML 1,000 ML IV SCH (15:34)
[2022-05-09] MEDS: amLODIPine 10 MG TAB PO SCH ×2 (22:21→22:24)
[2022-05-10] MEDS: SODIUM CHLORIDE 0.45% 1000 ML 1,000 ML IV SCH (03:42)
[2022-05-10 05:26] LABS: Calcium 8.4 mg/dL (8.4-10.2)
[2022-05-10] MEDS: hydrALAZINE 100 MG TAB PO SCH ×2 (06:26→13:47)
[2022-05-10] MEDS ORDERED: MAGNESIUM SULFATE 1 GM in SODIUM CHLORIDE 0.9% 50 ML IV ONE (09:00)
[2022-05-10] MEDS: FAMOTIDINE 10 MG TAB PO SCH (09:26)
[2022-05-10] MEDS: carvediloL 25 MG TAB PO SCH (09:27)
[2022-05-10] MEDS: HEPARIN 5,000 UNIT/1 ML VIAL SUB-Q SCH (09:27)
--- NOTE | 2022-05-10 11:12 | Discharge Summary ---
Providers - Providers Date of Admission: 05/07/22 18:31 Date of discharge: 05/10/22 Attending physician: JACOB NOBLE MD 05/07/22 13:44 Consult to Physician [CONS] Urgent Comment: Consulting Provider: SARAH BECERRIL Physician Instructions: Reason For Exam: Acute on chronic renal insufficiency, hypertensive Primary care physician: [facility] Hospitalization Reason for admission: Hypertensive emergency Condition: Good Pertinent studies: Reviewed. Procedures: None. Hospital course: Patient is a 37-year-old male past medical history of uncontrolled hypertension, congestive heart failure, CKD stage III who presented to the ED with weakness and dizziness that was found to be secondary to hypertensive emergency. He was found to have a blood pressure of 230/130 and a creatinine of 4.8. Patient's last creatinine at [facility] in October 2021 was 3.39. 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 The patient endorsed not being able to follow-up with a primary care doctor, pouncer, or being adherent with his antihypertensives was secondary to lack of insurance and limited finances. Patient was initiated on oral antihypertensives for appropriate blood pressure control. Nephrology was also consulted for further management. Patient's blood pressure has since remained stable, and he has been counseled about medication compliance. Patient expresses understanding. Patient is medically clear for discharge. Disposition: 01 HOME / SELF CARE / HOMELESS Final Discharge Diagnosis (Prints w/discharge instructions): Hypertensive emergency, ANA on CKD stage IV, hypokalemia, mild protein caloric malnutrition Time spent for discharge: 45 min Core Measure Documentation - Palliative Care Palliative Care/ Comfort Measures: Not Applicable - Core Measures Any of the following diagnoses?: none Exam - Constitutional Vitals: Temp Pulse Resp BP Pulse Ox 98.4 F 95 H 18 143/93 99 05/10/22 08:55 05/10/22 08:55 05/10/22 08:55 05/10/22 08:55 05/10/22 08:55 General appearance: Present: no acute distress, well-nourished - EENT Eyes: Present: PERRL, EOM intact ENT: hearing intact, clear oral mucosa, dentition normal - Neck Neck: Present: supple, normal ROM - Respiratory Respiratory effort: normal Respiratory: bilateral: CTA - Cardiovascular Rhythm: regular Heart Sounds: Present: S1 & S2 - Extremities Extremities: no ischemia, pulses intact, pulses symmetrical, No edema, normal temperature, normal color, Full ROM Peripheral Pulses: within normal limits - Abdominal General gastrointestinal: Present: soft, non-tender, non-distended, normal bowel sounds Male genitourinary: Present: deferred - Rectal Rectal Exam: deferred - Integumentary Integumentary: Present: clear, warm, dry - Musculoskeletal Musculoskeletal: strength equal bilaterally - Psychiatric Psychiatric: appropriate mood/affect, intact judgment & insight, memory intact, cooperative - Neurologic Neurologic: CNII-XII intact, moves all extremities - Allied Health Allied health notes reviewed: nursing Plan Activity: no restrictions Diet: low salt Additional Instructions: Patient is a 37-year-old male past medical history of uncontrolled hypertension, congestive heart failure, CKD stage III who presented to the ED with weakness and dizziness that was found to be secondary to hypertensive emergency. He was found to have a blood pressure of 230/130 and a creatinine of 4.8. Patient's last creatinine at [facility] in October 2021 was 3.39. 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 The patient endorsed not being able to follow- up with a primary care doctor, pouncer, or being adherent with his antihypertensives was secondary to lack of insurance and limited finances. Patient was initiated on oral antihypertensives for appropriate blood pressure control. Nephrology was also consulted for further management. Patient's blood pressure has since remained stable, and he has been counseled about medication compliance. Patient expresses understanding. Patient is medically clear for discharge. Care Plan Goals: Patient is medically cleared for discharge. Assessment: Patient is a 37-year-old male past medical history of uncontrolled hypertension, congestive heart failure, CKD stage III who presented to the ED with weakness and dizziness that was found to be secondary to hypertensive emergency. He was found to have a blood pressure of 230/130 and a creatinine of 4.8. Patient's last creatinine at [facility] in October 2021 was 3.39. 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 The patient endorsed not being able to follow-up with a primary care doctor, pouncer, or being adherent with his antihypertensives was secondary to lack of insurance and limited finances. Patient was initiated on oral antihypertensives for appropriate blood pressure control. Nephrology was also consulted for further management. Patient's blood pressure has since remained stable, and he has been counseled about medication compliance. Patient expresses understanding. Patient is medically clear for discharge. Follow up with: PRIMARY CARE, [Primary Care Provider] - 3-5 Days Prescriptions: AtorvaSTATin [Lipitor] 40 mg PO QHS #30 tablet amLODIPine 10 mg PO Q24H #30 tablet hydrALAZINE [Apresoline TAB] 100 mg PO Q8HR #90 tab carvediloL [Coreg] 25 mg PO BID #60 tablet
[2022-05-10 12:36] VITALS: BP 150/97
[2022-05-11 17:37] LABS: Albumin 3.5 g/dL (3.8-4.8); Gamma Globulin 1.1 g/dL (0.8-1.7)
[2022-05-11 22:33] LABS: ANA Screen, IFA Negative (Negative)
[2022-05-12 18:31] LABS: Myeloperoxidase Antibody <1.0 AI (<1.0)
== END 2022-05-10 14:10 | disposition home or self-care (01) | DRG 305 ==
LOC: ED 11:08 → 4A 18:31
PROVIDERS: ADMIT Internal Medicine; ATTEND Student in an Organized Health Care Education/Training Program
DX: I16.1 Hypertensive emergency (principal); N17.9 Acute kidney failure, unspecified; E44.1 Mild protein-calorie malnutrition; N18.4 Chronic kidney disease, stage 4 (severe); I50.9 Heart failure, unspecified; E87.6 Hypokalemia; Z68.28 Body mass index [BMI] 28.0-28.9, adult; Z86.711 Personal history of pulmonary embolism; J45.909 Unspecified asthma, uncomplicated; Z87.891 Personal history of nicotine dependence; I13.0 Hypertensive heart and chronic kidney disease with heart failure and stage 1 through stage 4 chronic kidney disease, or unspecified chronic kidney disease
CPT/HCPCS: 36415; 71046; 74176; 80048; 80053; 81001; 82043; 82436; 82550; 82962; 83735; 83935; 83970; 84100; 84133; 84165; 84300; 85025; 86021; 86038; 86160; 87086; 93005; G0378; J3490; J0610; J1644; J2270; J3475; J7030; J7120

== ENCOUNTER 2022-06-29 11:52 | Emergency (ER) | payer SELFPAY | END 2022-06-29 14:09 | disposition left against medical advice (07) | LOC: ED 11:52 | DX: I10 Essential (primary) hypertension (principal); Z53.21 Procedure and treatment not carried out due to patient leaving prior to being seen by health care provider ==